=== PATIENT | female | born 1945 | race Caucasian/White ===

== ENCOUNTER 2021-04-05 07:33 | Outpatient (CLI) | payer MEDICARE, SELFPAY ==
--- NOTE | ~2021-04-05 | MM_ITS ---
EXAMINATION: MM screening [facility] BI w [facility] HISTORY: Screening mammogram TECHNIQUE: Craniocaudal and mediolateral oblique 3-D tomosynthesis images were obtained and synthetic 2-D images were generated. CAD analysis was submitted and interpreted. COMPARISON: 08/05/2019, 05/28/2018, 02/20/2017 BREAST PARENCHYMAL COMPOSITION: There are scattered areas of fibroglandular density. FINDINGS: Scattered benign-appearing calcifications are present. There is no evidence of suspicious m ass, calcification, or architectural distortion to suggest malignancy in either breast. There has bee n no suspicious interval change. IMPRESSION: 1. No mammographic evidence of malignancy. 2. Recommend routine screening mammography in one year. BI-RADS Category 2: Benign finding(s). Reviewed, dictated and finalized at location A.
--- NOTE | ~2021-04-05 | DEXA_ITS ---
Bone Density Report Name: Maddi Waller Age: 75 Sex: Female Ethnicity: White Date of : 1945 Indication: postmenopausal; height loss; Referring Provider: Carmelina Bertrand Study: Bone densitometry was performed. Exam Date: April 05, 2021 Accession number: [id number] Bone Density: Region BMD T-score Z-score Classification AP Spine (L1, L2) 0.996 0.2 2.4 Normal Femoral Neck (Left) 0.667 -1.6 0.5 Osteopenia Total Hip (Left) 0.760 -1.5 0.3 Osteopenia Total Hip Bilateral Avg 0.767 -1.5 0.4 Osteopenia Femoral Neck (Right) 0.666 -1.6 0.5 Osteopenia Total Hip (Right) 0.774 -1.4 0.4 Osteopenia World Health Organization criteria for BMD impression classify patients as: Normal (T-score at or above -1.0), Osteopenia (T-score between -1.0 and -2.5), or Osteoporosis (T-score at or below -2.5). 10-year Fracture Risk(1): Major Osteoporotic Fracture 11% Hip Fracture 2.4% Reported Risk Factors: [place] (), Neck BMD=0.666, BMI=31.5 (1) FRAX(R) Version 3.08. Fracture probability calculated for an untreated patient. Fracture probability may be lower if the patient has received treatment. Previous Exams: Region Exam Age BMD T-score BMD Change BMD Change Date g/cm2 vs Baseline vs Previous AP Spine(L1, L2) 04/05/2021 75 0.996 0.2 0.005(0.5%)# 0.005(0.5%)# 12/01/2011 66 0.991 0.1 Total Hip(Left) 04/05/2021 75 0.760 -1.5 -0.095(-11.1%) -0.095(-11.1%) 12/01/2011 66 0.856 -0.7 Total Hip(Right) 04/05/2021 75 0.774 -1.4 -0.058(-7.0%)# -0.058(-7.0%)# 12/01/2011 66 0.832 -0.9 *Denotes significance at 95% confidence level, LSC for AP Spine = 0.022 g/cm2, LSC for Total Hip = 0.027 g/cm2 Clinical Information Provided by Patient: Has used the following medications: Vitamin D, Calcium Patient maximum height was 70 Menopause Age: 50 Onset of menses at age 12 Number of children 2 Impression: The patient has low bone mass, based on the Left Femoral Neck T-score. The patient has an estimated ten-year risk of hip fracture of 2.4% and an estimated ten-year risk of major fracture of 11%, based on the WHO FRAX algorithm. No significant bone loss was observed. Discussion: BONE DENSITY IS LOW AT ONE OR MORE SKELETAL SITES. This patient's lowest T-score is low at one or more skeletal sites. It meets the World Health Organization's (WHO) criteria for ?low bone mass? (T-score between -1.0 and -2.5). The patient's 10-year risk of fra
== END 2021-04-05 07:34 | disposition home or self-care (01) ==
PROVIDERS: PCP Family Medicine; Visit Provider Family Medicine
DX: Z12.31 Encounter for screening mammogram for malignant neoplasm of breast (principal); Z78.0 Asymptomatic menopausal state; M85.852 Other specified disorders of bone density and structure, left thigh; M85.851 Other specified disorders of bone density and structure, right thigh
CPT/HCPCS: 77063; 77067; 77080

== ENCOUNTER 2022-06-07 10:37 | Outpatient (CLI) | payer MEDICARE, SELFPAY ==
[2022-06-07 18:28] LABS: Basophils Absolute Auto 0.1 K/mm3 (0.0-0.1); Basophils Percent Auto 0.9 % (0.2-1.2); Eosinophils Absolute Auto 0.2 K/mm3 (0-0.3); Eosinophils Percent Auto 2.7 % (0-4.4); Hematocrit 46.1 % (37.0-47.0); Hemoglobin 14.6 g/dL (12.0-15.0); Immature Granulocyte Absolute 0.01 K/mm3 (0.00-0.031); Immature Granulocyte Percent A 0.2 % (0-0.5); Lymphocytes Absolute Auto 2.02 K/mm3 (0.9-3.2); Lymphocytes Percent Auto 36.7 % (18.3-44.2); Mean Corpuscular HGB Conc 31.7 g/dl (32-36); Mean Corpuscular Hemoglobin 29.5 pg (26-34); Mean Corpuscular Volume 93.1 fl (80-100); Monocytes Absolute Auto 0.5 K/mm3 (0.1-0.6); Monocytes Percent Auto 8.7 % (2.6-8.5); Neutrophils Absolute Auto 2.8 K/mm3 (1.3-6.7); Neutrophils Percent Auto 50.8 % (45.5-73.1); Platelet Count Result 277 k/mm3 (150-375); Red Blood Count 4.95 M/mm3 (4.2-5.4); White Blood Count 5.5 K/mm3 (4.5-10.0)
[2022-06-07 18:37] LABS: Alanine Aminotransferase 19 U/L (6-35); Albumin Level 4.5 g/dL (3.5-5.1); Alkaline Phosphatase 95 U/L (38-126); Anion Gap 10 mmol/L (8-16); Aspartate Amino Transferase 41 U/L (14-36); Bilirubin,Total 0.6 mg/dL (0.2-1.3); Blood Urea Nitrogen 17 mg/dL (7-17); Carbon Dioxide 30 mmol/L (22-30); Chloride 100 mmol/L (98-107); Cholesterol 260 mg/dL (0-200); Estimated Glomerular Filt Rate > 60; Glucose 98 mg/dL (65-110); HDL Direct 60 mg/dL; Potassium 4.5 mmol/L (3.4-5.0); Sodium 140 mmol/L (137-145); Triglycerides 111 mg/dL (<150)
[2022-06-07 18:48] LABS: LDL Cholesterol Direct 158 mg/dL
[2022-06-07 18:50] LABS: Vitamin D 25 Hydroxy 80.5 ng/mL
== END 2022-06-07 10:38 | disposition home or self-care (01) ==
LOC: ANHGOSHLAB 10:42
PROVIDERS: PCP Family Medicine; Visit Provider Family Medicine
DX: E78.5 Hyperlipidemia, unspecified (principal); E55.9 Vitamin D deficiency, unspecified; E53.8 Deficiency of other specified B group vitamins; E03.9 Hypothyroidism, unspecified; Z79.899 Other long term (current) drug therapy
CPT/HCPCS: 36415; 80053; 80061; 82306; 82607; 85025

== ENCOUNTER 2022-10-12 11:14 | Outpatient (CLI) | payer MEDICARE, SELFPAY ==
[2022-10-12 19:03] LABS: Alanine Aminotransferase 25 U/L (6-35); Albumin Level 4.5 g/dL (3.5-5.1); Alkaline Phosphatase 73 U/L (38-126); Anion Gap 5 mmol/L (8-16); Aspartate Amino Transferase 39 U/L (14-36); Bilirubin,Total 0.4 mg/dL (0.2-1.3); Blood Urea Nitrogen 15 mg/dL (7-17); Calcium 8.6 mg/dL (8.4-10.2); Carbon Dioxide 31 mmol/L (22-30); Chloride 101 mmol/L (98-107); Cholesterol 162 mg/dL (0-200); Estimated Glomerular Filt Rate > 60; Glucose 100 mg/dL (65-110); HDL Direct 66 mg/dL; Potassium 4.3 mmol/L (3.4-5.0); Sodium 137 mmol/L (137-145); Triglycerides 78 mg/dL (<150)
[2022-10-12 19:13] LABS: LDL Cholesterol Direct 62 mg/dL
== END 2022-10-12 11:15 | disposition home or self-care (01) ==
LOC: ANHGOSHLAB 11:18
PROVIDERS: PCP Family Medicine; Visit Provider Family Medicine
DX: E78.5 Hyperlipidemia, unspecified (principal); I10 Essential (primary) hypertension; Z79.899 Other long term (current) drug therapy
CPT/HCPCS: 36415; 80053; 80061

== ENCOUNTER → 2023-02-19 10:14 | Outpatient (CLI) | payer MEDICARE, SELFPAY ==
--- NOTE | ~2023-02-19 | XR_ITS ---
Left wrist Technique: PA, oblique, lateral, and ulnar deviation views were obtained. Clinical History: Pain Findings: No acute fracture or dislocation is seen. Osseous alignment is anatomic. Joint spaces are p reserved. Soft tissues are unremarkable. Impression: Unremarkable left wrist radiographs. Reviewed, dictated and finalized at location . Impression: Unremarkable left wrist radiographs.
--- NOTE | ~2023-02-19 | XR_ITS ---
Right Shoulder Technique: AP and axillary views were obtained. Clinical History: Pain Findings: No fracture or dislocation is seen. Osseous alignment is anatomic. The glenohumeral and acr omioclavicular joint spaces are preserved. Soft tissues are unremarkable. Impression: Unremarkable right shoulder radiographs. Reviewed, dictated and finalized at [facility]. Impression: Unremarkable right shoulder radiographs.
== END ==
PROVIDERS: PCP Family Medicine; Visit Provider Family Medicine
DX: M25.532 Pain in left wrist (principal); M25.511 Pain in right shoulder
CPT/HCPCS: 73030; 73110

== ENCOUNTER 2023-04-05 10:08 | Emergency (ER) | payer MEDICARE, SELFPAY ==
[2023-04-05] VITALS (17 sets, daily range): BP systolic 119–189; BP diastolic 68–125; PULSE 60–87; RESP 12–30; TEMP 36.6; O2SAT 74–100
--- NOTE | ~2023-04-05 | CT_ITS ---
EXAMINATION: CT brain wo con DATE: 04/05/2023 12:12 INDICATION: Headache. Lightheadedness. TECHNIQUE: Computed tomography (CT) of the head was performed without intravenous contrast. The mA wa s adjusted according to patient size. Iterative reconstruction technique was employed. The dose-lengt h product was 605.33 mGy-cm. COMPARISON: None FINDINGS: There is no intracranial hemorrhage, acute infarction, or abnormal intracranial mass lesion . There are scattered areas of low attenuation in the cerebral white matter, which is within normal l imits for the patient's age. The ventricles are normal in size. There are likely changes of ocular le ns replacement surgeries. There is mild mucosal thickening in the ethmoid sinuses. The mastoid air ce lls are normal. IMPRESSION: 1. Normal aging brain. Reviewed, dictated and finalized at location A. IMPRESSION: 1. Normal aging brain.
[2023-04-05 10:38] LABS: Basophils Percent Auto 0.5 % (0.2-1.2); Eosinophils Absolute Auto 0.1 K/mm3 (0-0.3); Eosinophils Percent Auto 1.9 % (0-4.4); Hematocrit 42.9 % (37.0-47.0); Hemoglobin 13.9 g/dL (12.0-15.0); Immature Granulocyte Absolute 0.02 K/mm3 (0.00-0.031); Immature Granulocyte Percent A 0.3 % (0-0.5); Lymphocytes Percent Auto 31.3 % (18.3-44.2); Mean Corpuscular HGB Conc 32.4 g/dl (32-36); Mean Corpuscular Hemoglobin 29.8 pg (26-34); Mean Corpuscular Volume 91.9 fl (80-100); Mean Platelet Volume 10.5 fl (7.4-10.4); Monocytes Absolute Auto 0.5 K/mm3 (0.1-0.6); Monocytes Percent Auto 8.2 % (2.6-8.5); Neutrophils Absolute Auto 3.3 K/mm3 (1.3-6.7); Neutrophils Percent Auto 57.8 % (45.5-73.1); Platelet Count Result 213 k/mm3 (150-375); Red Blood Count 4.67 M/mm3 (4.2-5.4); White Blood Count 5.8 K/mm3 (4.5-10.0)
[2023-04-05 10:51] LABS: Alanine Aminotransferase 23 U/L (6-35); Albumin Level 4.2 g/dL (3.5-5.1); Alkaline Phosphatase 67 U/L (38-126); Anion Gap 5 mmol/L (8-16); Aspartate Amino Transferase 33 U/L (14-36); Bilirubin,Total 0.7 mg/dL (0.2-1.3); Blood Urea Nitrogen 22 mg/dL (7-17); Calcium 8.4 mg/dL (8.4-10.2); Carbon Dioxide 28 mmol/L (22-30); Chloride 105 mmol/L (98-107); Estimated CRCL calculation 71 ml/min; Estimated Glomerular Filt Rate > 60; Glucose 99 mg/dL (65-110); Potassium 4.4 mmol/L (3.4-5.0); Sodium 138 mmol/L (137-145)
--- NOTE | 2023-04-05 11:59 | ECG_ITS ---
Measurements Intervals [place] Rate: 71 P: 72 VA: 166 QRS: -7 QRSD: 79 T: 10 QT: 364 QTc: 397 Interpretive Statements SINUS RHYTHM LOW QRS VOLTAGE IN PRECORDIAL LEADS [QRS DEFLECTION < 1.0 mV IN CHEST LEADS] NO PREVIOUS ECG AVAILABLE FOR COMPARISON Electronically Signed On 04-05-2023 14:04:43 CDT by Saul Kaur M.D.
--- NOTE | 2023-04-05 12:58 | ED.DIZZY ---
HPI - Dizziness General Chief Complaint: Dizziness Stated Complaint: dizzy Time Seen by Provider: 04/05/23 10:21 Source: patient Mode of arrival: EMS Limitations: no limitations History of Present Illness HPI Narrative: Patient is a 77-year-old female who presents to the ED via EMS with report of lightheadedness. Patient reports she woke up this morning with lightheadedness anytime she stood upright. She felt like she was going to pass out, felt very unsteady on her feet. Denies ever feeling like the room was spinning. Symptoms were better with sitting down. She did not fall or lose consciousness ever. Patient states she had similar episodes of lightheadedness a couple of weeks ago, but the symptoms did not last as long as it did today. She has been feeling her normal self the last couple of days. She has been eating and drinking normally. She did experience a slight headache this morning, which was resolved with Aleve. Denies any vision changes, focal weakness, numbness, chest pain, difficulty breathing, nausea, vomiting, slurred speech, confusion, dysarthria, ear pain or ringing. Related Data Home Medications Medication Instructions Recorded Confirmed thyroid (pork) 60 mg tablet 60 mg PO DAILY 12/27/20 02/19/23 cholecalciferol (vitamin D3) 50 50 mcg PO DAILY 04/05/21 02/19/23 mcg (2,000 unit) capsule ascorbic acid (vitamin C) 1,000 mg 1 g PO DAILY 06/07/22 02/19/23 capsule biotin 10,000 mcg capsule 10,000 mcg PO DAILY 06/07/22 02/19/23 kcglypn-phtvifrjf-slgb tablet 1 tablet PO DAILY 06/07/22 02/19/23 glucosamine-chondroitin 1,500 mg ml PO 06/07/22 02/19/23 -1,200 mg/30 mL oral liquid omega-3 acid ethyl esters 1 gram 1 cap PO DAILY 06/07/22 02/19/23 capsule vitamins A,C,G-azge-hogefs 4,296 1 cap PO BID 06/07/22 02/19/23 mcg-226 mg-90 mg capsule (PreserVision AREDS) Allergies Allergy/AdvReac Type Severity Reaction Status Date / Time No Known Allergies Allergy Verified 04/05/23 10:21 Review of Systems Review of Systems: CONSTITUTIONAL: Denies fever, chills, or sweats. EYES: Denies visual changes. CARDIOVASCULAR: Denies chest pain, palpitations, or edema. RESPIRATORY: Denies cough or dyspnea. GASTROINTESTINAL: Denies abdominal pain, nausea, vomiting. MUSCULOSKELETAL: Denies back pain, joint pain, or myalgia. NEUROLOGIC: See HPI. All systems reviewed & are unremarkable except as noted in HPI and below PMFSH Past Medical History Medical History Dyslipidemia Hypothyroidism (acquired) Osteopenia Surgical History Surgical History History of cataract surgery (~02/2021) b/l Family History Family History Other Diabetes mellitus Social History Social History Smoking status: Former smoker Second hand tobacco smoke exposure: No Smoking end date: 10/22/03 Alcohol intake: current Substance use: never Substance use type: does not use Lack of Transportation: No Lack of Food: Never True Current Housing: I Have Housing Concerned About Future Housing: No Difficulty Paying Gas/Electric Bills: No Difficulty Paying for Meds: No Currently Unemployed: No Education: High School Diploma/GED Difficulty w/ Childcare or Family Care: No Living arrangements: alone Occupation/Education: retired Gender identity (if verbalized by the patient): Female Exam Narrative: GENERAL: Well appearing, well-nourished, non-toxic, in no acute distress. HEAD: Normocephalic, atraumatic. EYES: PERRL/EOMI, conjunctivae clear bilaterally. Very mild fatigable nystagmus when looking to the left. EARS:TMS clear, with good light reflex. No erythema or bulging. No cerumen impaction. THROAT: Pharynx clear, no exudate. MMs slightly dry. NECK: Supple. No
[2023-04-05 13:14] LABS: Troponin I < 0.012 ng/mL (0.000-0.034)
[2023-04-05] MEDS: MECLIZINE HCL 25 MG TABLET PO (13:14)
[2023-04-05] MEDS: SODIUM CHLORIDE 0.9% IV 1,000 ML 999 ML IV CONT (13:15)
[2023-04-05 13:40] LABS: Appearance Urine Cloudy (Clear); Bacteria Urine 3+ /hpf; Bilirubin Urine 1+ (Negative); Blood Urine Negative (Negative); Color Urine Dark Yellow (Yellow); Glucose Urine UA Negative (Negative); Ketones Urine Trace mg/dL (Negative); Leukocyte Esterase Ur 1+ LEU/UL (Negative); Nitrate Urine Negative (Negative); Protein Urine 1+ mg/dL (Negative); Specific Grav Ur 1.034 (1.001-1.035); Squamous Epithelial Cell Urine Moderate /hpf (Few)
[2023-04-05 13:46] LABS: Add Urine Microscopic? YES
[2023-04-05] MEDS: CEPHALEXIN 500 MG CAPSULE PO (16:34)
== END 2023-04-05 16:36 | disposition home or self-care (01) ==
PROVIDERS: Emergency Provider Physician Assistant; PCP Family Medicine
DX: N30.01 Acute cystitis with hematuria (principal); R42 Dizziness and giddiness; E78.5 Hyperlipidemia, unspecified; E03.9 Hypothyroidism, unspecified; M85.80 Other specified disorders of bone density and structure, unspecified site; Z98.42 Cataract extraction status, left eye; Z98.41 Cataract extraction status, right eye; Z87.891 Personal history of nicotine dependence
CPT/HCPCS: 36415; 70450; 80053; 81001; 81025; 84484; 85025; 87086; 87088; 93005; 96360; 96361; 99284; A9270; J7030

== ENCOUNTER 2023-05-16 10:00 | Outpatient (RCR) | payer MEDICARE, SELFPAY ==
--- NOTE | 2023-04-18 13:00 | PTOPEVAL1 ---
Assessment and note entered by Jeanette Alcaraz, PT Evaluation Information Assessment Status Evaluation Diagnosis dizziness Onset 04-05-23 Subjective Information went to ER 04-05-23: light headed and felt like going to pass out when woke up in AM; took her BP at home 260/105- called ambulance to ER; had head CT- negative, mild sinus thickening; given new med for HTN, had not taken any before. have meclazine; is taking PRN now, but it does make her tired; is taking her BP at home, 2x/day: this AM was 125/80 to 105/75; Have not had any falls; symptoms now: wobbly/off balance sit to stand; going to fall if don't hold tight- on stairs hold with both hands, going up stairs is not as bad; ( have history of almost panic on elevators and always careful and afraid of falling on stairs); when walking- afraid going to lose balance and fall, then break something; is not driving due to symptoms; over the weekend was OK, went to family event with lots of people and noise, had to leave, felt like going to fall; is more off balance than dizzy vison: varies at times; have macular degeneration under dr care; L eye is more involved--getting injections; also have dry eyes- use drops; sometimes TV is blurry; after taking the meclazine, eyes do not hurt as much; prior activity: live alone,active- walk for fitness 2 miles for fitness 2-3/wk; golfs. does not use assistive device, but has a cane and has used few times lately; is not driving due to s/s Reported Pain Level Pain Score 0: Self Report Assessment PT Clinical Summary Maddi has the diagnosis of dizziness. She went to the ER with lightheadedness like going to pass out. Head CT was negative and she was diagnosed with HTN and started on meds. Due to her symptoms , she is using the cane PRN, decreased activity level, not walking for fitness and is not driving. Dizziness Handicap Index score of 56/100. She has not had any falls, but unsteady reports. And states she has a fear of falling. Her symptoms increase w
--- NOTE | 2023-05-16 10:57 | PTOPDC ---
Assessment and note entered by Jeanette Alcaraz, PT Evaluation Information Assessment Status Discharge Diagnosis dizziness Onset 04-05-23 Subjective Information Maddi reports: much better, still have a little motion feeling with driving, working in kitchen; not taken any dizzy meds; have not had any falls; most of the time is confident with walking, doing well on stairs; no issues with driving; feel like she is 90% better, still have some problems with standing and turning in kitchen or reaching down into cabinets; Reported Pain Level Pain Score 0: Self Report Assessment PT Clinical Summary Maddi has received 7 PT sessions. Compared to the initial evaluation: she has improved in all areas: R and L LE strength, TUG and Bermudez balance scores; improved balance with 360' turns, ability on stairs--more confident with her mobility, returned to driving and has not had any falls. Education completed for HEP and safety with mobility. She expressed concern about continuing to have dizzy spells ; they appear to be inconsistent and one occurred during today's session with rolling from her L side to her R side for leg exercises- cleared within 5 seconds. She reports no problems at home with lying in bed and turning over. Education provided for safety-- hold position, keep eyes open and take deep breaths--not to hold her breath. The goals were achieved, except Bermudez balance score and time with single leg standing on R and L. Discharge PT services; she is to continue with her HEP Plan of Care PT Services Indicated No
== END 2023-05-16 13:49 | disposition home or self-care (01) ==
LOC: ANHPT 10:00
PROVIDERS: PCP Family Medicine; Visit Provider Family Medicine
DX: R42 Dizziness and giddiness (principal)
CPT/HCPCS: 97110; 97112; 97162; 97530

== ENCOUNTER 2023-06-13 10:45 | Outpatient (CLI) | payer MEDICARE, SELFPAY ==
[2023-06-13 18:57] LABS: Alanine Aminotransferase 25 U/L (6-35); Albumin Level 4.5 g/dL (3.5-5.1); Alkaline Phosphatase 69 U/L (38-126); Anion Gap 12 mmol/L (8-16); Aspartate Amino Transferase 43 U/L (14-36); Bilirubin,Total 0.5 mg/dL (0.2-1.3); Blood Urea Nitrogen 17 mg/dL (7-17); Carbon Dioxide 32 mmol/L (22-30); Chloride 96 mmol/L (98-107); Cholesterol 162 mg/dL (0-200); Estimated Glomerular Filt Rate > 60; Glucose 100 mg/dL (65-110); HDL Direct 58 mg/dL; Sodium 140 mmol/L (137-145); Triglycerides 71 mg/dL (<150)
[2023-06-13 19:07] LABS: Basophils Percent Auto 0.5 % (0.2-1.2); Eosinophils Absolute Auto 0.1 K/mm3 (0-0.3); Eosinophils Percent Auto 1.4 % (0-4.4); Hematocrit 47.3 % (37.0-47.0); Hemoglobin 14.8 g/dL (12.0-15.0); Immature Granulocyte Absolute 0.03 K/mm3 (0.00-0.031); Immature Granulocyte Percent A 0.5 % (0-0.5); Lymphocytes Absolute Auto 2.28 K/mm3 (0.9-3.2); Lymphocytes Percent Auto 34.8 % (18.3-44.2); Mean Corpuscular HGB Conc 31.3 g/dl (32-36); Mean Corpuscular Hemoglobin 29.5 pg (26-34); Mean Corpuscular Volume 94.4 fl (80-100); Mean Platelet Volume 10.8 fl (7.4-10.4); Monocytes Absolute Auto 0.5 K/mm3 (0.1-0.6); Monocytes Percent Auto 8.1 % (2.6-8.5); Neutrophils Absolute Auto 3.6 K/mm3 (1.3-6.7); Neutrophils Percent Auto 54.7 % (45.5-73.1); Platelet Count Result 238 k/mm3 (150-375); Red Blood Count 5.01 M/mm3 (4.2-5.4); Red Cell Distribution Width 14.3 % (11.5-14.5); White Blood Count 6.6 K/mm3 (4.5-10.0)
[2023-06-13 19:08] LABS: LDL Cholesterol Direct 79 mg/dL
[2023-06-13 20:06] LABS: Vitamin D 25 Hydroxy 62.8 ng/mL
[2023-06-13 20:20] LABS: Thyroid Stimulating Hormone Reflex 0.403 uIU/mL (0.465-4.68)
[2023-06-13 20:46] LABS: Free T4 Free Thyroxine Reflex 1.14 ng/dL (0.78-2.19)
[2023-06-13 21:25] LABS: Total Triiodothyronine (T3) 1.95 NG/ML (0.97-1.69)
== END 2023-06-13 10:46 | disposition home or self-care (01) ==
PROVIDERS: PCP Family Medicine; Visit Provider Family Medicine
DX: R42 Dizziness and giddiness (principal); E53.8 Deficiency of other specified B group vitamins; I10 Essential (primary) hypertension; E78.5 Hyperlipidemia, unspecified; E55.9 Vitamin D deficiency, unspecified
CPT/HCPCS: 36415; 80053; 80061; 82306; 82607; 84439; 84443; 84480; 85025

== ENCOUNTER 2023-12-12 10:48 | Outpatient (CLI) | payer MEDICARE, SELFPAY ==
[2023-12-12 14:28] LABS: Alanine Aminotransferase 24 U/L (6-35); Albumin Level 4.4 g/dL (3.5-5.1); Alkaline Phosphatase 73 U/L (38-126); Anion Gap 3 mmol/L (8-16); Aspartate Amino Transferase 64 U/L (14-36); Bilirubin,Total 0.6 mg/dL (0.2-1.3); Blood Urea Nitrogen 23 mg/dL (7-17); Calcium 9.3 mg/dL (8.4-10.2); Carbon Dioxide 31 mmol/L (22-30); Chloride 105 mmol/L (98-107); Estimated Glomerular Filt Rate > 60; Glucose 95 mg/dL (65-110); Potassium 4.8 mmol/L (3.4-5.0); Sodium 139 mmol/L (137-145)
== END 2023-12-12 10:49 | disposition home or self-care (01) ==
LOC: ANHGOSHLAB 10:49
PROVIDERS: PCP Family Medicine; Visit Provider Family Medicine
DX: E78.5 Hyperlipidemia, unspecified (principal); I10 Essential (primary) hypertension
CPT/HCPCS: 36415; 80053

== ENCOUNTER → 2023-12-12 10:56 | Outpatient (CLI) | payer MEDICARE, SELFPAY ==
--- NOTE | ~2023-12-12 | XR_ITS ---
EXAMINATION:XR cervical spine 4-5V DATE: 12/12/2023 11:21 INDICATION: Neck pain TECHNIQUE: AP, lateral in neutral, flexion, extension, and odontoid views of the cervical spine are p rovided. COMPARISON: None FINDINGS: Alignment is normal. There is no hypermobility with flexion or extension. The odontoid proc ess is intact. No fracture is identified. The vertebral body heights are maintained. There is moderat e loss of intervertebral disc space height at C6-7 and C7-T1. Small degenerative osteophytes project from the anterior endplates of multiple vertebral bodies. There is multilevel mild to moderate facet and uncovertebral joint osteoarthritis. Prevertebral soft tissues are normal. IMPRESSION: 1. Moderate cervical spondylosis without acute findings. Reviewed, dictated and finalized at location B. [employer]
== END ==
PROVIDERS: PCP Family Medicine; Visit Provider Family Medicine
DX: M47.892 Other spondylosis, cervical region (principal)
CPT/HCPCS: 72050

== ENCOUNTER 2024-05-29 08:36 | Outpatient (CLI) | payer MEDICARE, SELFPAY ==
--- NOTE | ~2024-05-29 | DEXA_ITS ---
Bone Density Report Name: YASMEEN DAVE Age: 78 Sex: Female Ethnicity: White Date of : 1945 Indication: postmenopausal; screening for osteoporosis; height loss; Referring Provider: EMMA AMADOR Study: Bone densitometry was performed. Exam Date: May 29, 2024 Accession number: [id number] Bone Density: Region BMD T-score Z-score Classification AP Spine(L1-L4) 1.066 0.2 2.8 Normal Femoral Neck (Left) 0.670 -1.6 0.6 Osteopenia Total Hip (Left) 0.793 -1.2 0.8 Osteopenia Femoral Neck (Right) 0.636 -1.9 0.3 Osteopenia Total Hip (Right) 0.830 -0.9 1.1 Normal Total Hip Mean 0.812 -1.1 1.0 Osteopenia World Health Organization criteria for BMD impression classify patients as: Normal (T-score at or above -1.0), Osteopenia (T-score between -1.0 and -2.5), or Osteoporosis (T-score at or below -2.5). 10-year Fracture Risk(1): Major Osteoporotic Fracture 14% Hip Fracture 3.8% Reported Risk Factors: [place] (), Neck BMD=0.636, BMI=30.7 (1) FRAX(R) Version 3.08. Fracture probability calculated for an untreated patient. Fracture probability may be lower if the patient has received treatment. Clinical Information Provided by Patient: Has used the following medications: Vitamin D, Calcium Patient maximum height was 70 Menopause Age: 50 No regular weight bearing exercise Drinks caffeinated beverages Onset of menses at age 12 Number of children 2 Impression: The patient has low bone mass, based on the Right Femoral Neck T-score. The patient has an estimated ten-year risk of hip fracture of 3.8% and an estimated ten-year risk of major fracture of 14%, based on the WHO FRAX algorithm. Discussion: BONE DENSITY IS LOW AT ONE OR MORE SKELETAL SITES. THE PATIENT'S BMD AND CLINICAL RISK FACTORS CONTRIBUTE TO THIS PATIENT'S INCREASED RISK OF FRACTURE. This patient's lowest T-score is low at one or more skeletal sites. It meets the World Health Organization's (WHO) criteria for ?low bone mass? (T-score between -1.0 and -2.5). The patient's 10-year risk of hip fracture as calculated by FRAX exceeds the threshold where pharmacological therapy is recommended by the National Osteoporosis Foundation (NOF). However, all treatment decisions require clinical judgment and consideration of individual patient factors, including patient preferences, comorbidities, previous drug use, risk factors not captured in the FRAX model (e.g., frailty, falls, vitamin D deficiency, increased bone turnover, interval significant decline in bone density) and possible under or overestimation of fracture risk by FRAX. The patient should follow a healthful lifestyle (good nutrition with adequate calcium and vitamin D, and appropriate weight-bearing exercise). Follow-Up: Consider a repeat BMD and Vertebr
--- NOTE | ~2024-05-29 | MM_ITS ---
EXAMINATION: MM screening senthil BI w everett HISTORY: Screening TECHNIQUE: Craniocaudal and mediolateral oblique 3-D tomosynthesis images were obtained and synthetic 2-D images were generated. CAD analysis was submitted and interpreted. COMPARISON: Comparison to multiple prior studies sequentially, with oldest reviewed study dated 12/2014. BREAST PARENCHYMAL COMPOSITION: Not dense: There are scattered areas of fibroglandular density. FINDINGS: There is no evidence of suspicious mass, calcification, or architectural distortion to sugg est malignancy in either breast. There has been no suspicious interval change. IMPRESSION: 1. No mammographic evidence of malignancy. 2. Recommend routine screening mammography in one year. BI-RADS Category 1: Negative Reviewed, dictated and finalized at location B.
== END 2024-05-29 08:37 | disposition home or self-care (01) ==
LOC: ANHIMG 08:38
PROVIDERS: PCP Family Medicine; Visit Provider Family Medicine
DX: Z12.31 Encounter for screening mammogram for malignant neoplasm of breast (principal); Z78.0 Asymptomatic menopausal state; M85.852 Other specified disorders of bone density and structure, left thigh; M85.851 Other specified disorders of bone density and structure, right thigh
CPT/HCPCS: 77063; 77067; 77080

== ENCOUNTER 2024-06-16 11:22 | Outpatient (CLI) | payer MEDICARE, SELFPAY ==
[2024-06-16 14:10] LABS: Basophils Absolute Auto 0.1 K/mm3 (0.0-0.1); Basophils Percent Auto 0.8 % (0.2-1.2); Eosinophils Absolute Auto 0.2 K/mm3 (0-0.3); Eosinophils Percent Auto 2.2 % (0-4.4); Hematocrit 45.8 % (37.0-47.0); Hemoglobin 14.6 g/dL (12.0-15.0); Immature Granulocyte Absolute 0.02 K/mm3 (0.00-0.031); Immature Granulocyte Percent A 0.3 % (0-0.5); Lymphocytes Absolute Auto 2.53 K/mm3 (0.9-3.2); Lymphocytes Percent Auto 35.5 % (18.3-44.2); Mean Corpuscular HGB Conc 31.9 g/dl (32-36); Mean Corpuscular Hemoglobin 29.7 pg (26-34); Mean Corpuscular Volume 93.3 fl (80-100); Mean Platelet Volume 10.8 fl (7.4-10.4); Monocytes Absolute Auto 0.6 K/mm3 (0.1-0.6); Monocytes Percent Auto 8.7 % (2.6-8.5); Neutrophils Absolute Auto 3.7 K/mm3 (1.3-6.7); Neutrophils Percent Auto 52.5 % (45.5-73.1); Platelet Count Result 244 k/mm3 (150-375); Red Blood Count 4.91 M/mm3 (4.2-5.4); Red Cell Distribution Width 15.4 % (11.5-14.5); White Blood Count 7.1 K/mm3 (4.5-10.0)
[2024-06-16 14:50] LABS: Alanine Aminotransferase 20 U/L (6-35); Albumin Level 4.4 g/dL (3.5-5.1); Alkaline Phosphatase 68 U/L (38-126); Anion Gap 11 mmol/L (4-12); Aspartate Amino Transferase 60 U/L (14-36); Bilirubin,Total 0.7 mg/dL (0.2-1.3); Blood Urea Nitrogen 19 mg/dL (7-17); Calcium 8.7 mg/dL (8.4-10.2); Carbon Dioxide 28 mmol/L (22-30); Chloride 102 mmol/L (98-107); Cholesterol 145 mg/dL (0-200); Estimated Glomerular Filt Rate > 60; Glucose 96 mg/dL (65-110); HDL Direct 63 mg/dL; Potassium 4.4 mmol/L (3.4-5.0); Sodium 141 mmol/L (137-145); Triglycerides 63 mg/dL (<150)
[2024-06-16 15:01] LABS: LDL Cholesterol Direct 60 mg/dL
[2024-06-16 16:06] LABS: Vitamin D 25 Hydroxy 57.4 ng/mL
== END 2024-06-16 11:23 | disposition home or self-care (01) ==
LOC: ANHGOSHLAB 11:24
PROVIDERS: PCP Family Medicine; Visit Provider Family Medicine
DX: I10 Essential (primary) hypertension (principal); E53.8 Deficiency of other specified B group vitamins; H35.30 Unspecified macular degeneration; E78.5 Hyperlipidemia, unspecified; E55.9 Vitamin D deficiency, unspecified
CPT/HCPCS: 36415; 80053; 80061; 82306; 82607; 85025

== ENCOUNTER 2024-07-10 06:14 | Day surgery (SDC) | payer MEDICARE, SELFPAY ==
[2024-06-18 14:24] VITALS: BMI 34.4
[2024-06-20 11:04] VITALS: BMI 31.1
--- NOTE | 2024-07-09 13:12 | WPDANESEPPF ---
Anes - Initial Pre Proc Eval Procedure: Operation Date: 07/10/24 08:00 Proposed Procedures p Diagnostic Colonoscopy - David Castro MD Date/Time: 07/09/24 13:12 Surgeon: David Castro MD Pre Op Diagnosis: Family History of Colon Cancer Patient Data Age: 78 Gender: F Height: 1.73 m Weight: 92.8 kg Allergies Allergy/AdvReac Type Severity Reaction Status Date / Time No Known Allergies Allergy Verified 07/10/24 06:37 Home Medications Medication Instructions Recorded Confirmed Type thyroid (pork) 60 mg tablet 60 mg PO DAILY 12/27/20 07/10/24 History cholecalciferol (vitamin D3) 50 50 mcg PO DAILY 04/05/21 07/10/24 History mcg (2,000 unit) capsule ascorbic acid (vitamin C) 1,000 mg 1 g PO DAILY 06/07/22 07/10/24 History capsule biotin 10,000 mcg capsule 10,000 mcg PO DAILY 06/07/22 07/10/24 History uurljel-vxgfndyzm-urzl tablet 1 tablet PO DAILY 06/07/22 07/10/24 History glucosamine-chondroitin 1,500 mg 30 ml PO DAILY 06/07/22 07/10/24 History -1,200 mg/30 mL oral liquid omega-3 acid ethyl esters 1 gram 1 cap PO DAILY 06/07/22 07/10/24 History capsule vitamins A,C,B-mtho-orffby 4,296 1 cap PO BID 06/07/22 07/10/24 History mcg-226 mg-90 mg capsule (PreserVision AREDS) amlodipine 5 mg tablet 5 mg PO DAILY #90 tabs 06/12/24 07/10/24 Rx rosuvastatin 10 mg tablet 10 mg PO QHS #90 tabs 06/12/24 07/10/24 Rx Patient hx anesthesia problems: none Family hx anesthesia problems: none Results Review: All pre-operative results and documents have been reviewed as part of the pre-operative evaluation. [facility] Past Medical History Medical History Chronic neck pain Dyslipidemia Essential (primary) hypertension Family history of colon cancer Hypothyroidism (acquired) Macular degeneration of both eyes Osteopenia Surgical History Surgical History History of cataract surgery (~02/2021) b/l Family History Family History Other Diabetes mellitus Social History Social History Smoking status: Former smoker Tobacco type: cigarettes Second hand tobacco smoke exposure: No Smoking end date: 10/22/03 Alcohol intake: current Alcohol use details: occasional Substance use: never Substance use type: does not use Lack of Transportation: No Lack of Food: Never True Current Housing: I Have Housing Concerned About Future Housing: No Difficulty Paying Gas/Electric Bills: No Difficulty Paying for Meds: No Currently Unemployed: No Education: High School Diploma/GED Difficulty w/ Childcare or Family Care: No Living arrangements: alone Occupation/Education: retired Gender identity (if verbalized by the patient): Female Spiritual care concerns: No Anes - Eval Final PreProcedure Day of Procedure 07/09/24 13:12 Patient weight: obese Heart: regular rate and rhythm Lungs: clear to auscultation Airway: Mallampati scale class II Neurological: alert and oriented Last oral intake: >/= 8 hours ASA classification: III Emergent: no Anesthetic plan: proceed Anesthesia type and monitoring: general GIVS and standard monitoring Results Review: All pre-operative results and documents have been reviewed as part of the pre-operative evaluation. Informed Consent: The patient's anesthetic plan and its attendant risks and benefits were discussed with the patient/family/POA. Questions were solicited and answers provided to the satisfaction of the patient/family/POA.
[2024-07-10 06:38] VITALS: BP 106/77; PULSE 63; RESP 16; TEMP 36.3; O2SAT 99
[2024-07-10] MEDS: LACTATED RINGERS 1,000 ML 150 ML IV CONT (06:43)
--- NOTE | 2024-07-10 07:18 | PM.HPGS ---
History of Present Illness History of Present Illness Consent: Risks, benefits, and alternatives have been discussed and questions answered. Patient agrees to proceed with procedure. Chief complaint: Family History of Colon Cancer Narrative: Maddi Waller is a 78 year old female presents for screening colonoscopy. Patient's current weight appetite and bowel movements are normal. She denies abdominal pain. Patient has had no bleeding. Patient's daughter recently was identified as having colon cancer at age 55. Patient reports previous colonoscopy 5 years ago was unremarkable. She presents today for screening colonoscopy. Review of Systems Review of Systems: All systems reviewed & are unremarkable except as noted in HPI and below PMFSH Past Medical History Medical History Chronic neck pain Dyslipidemia Essential (primary) hypertension Family history of colon cancer Hypothyroidism (acquired) Macular degeneration of both eyes Osteopenia Surgical History Surgical History History of cataract surgery (~02/2021) b/l Family History Family History Other Diabetes mellitus Social History Social History Smoking status: Former smoker Tobacco type: cigarettes Second hand tobacco smoke exposure: No Smoking end date: 10/22/03 Alcohol intake: current Alcohol use details: occasional Substance use: never Substance use type: does not use Lack of Transportation: No Lack of Food: Never True Current Housing: I Have Housing Concerned About Future Housing: No Difficulty Paying Gas/Electric Bills: No Difficulty Paying for Meds: No Currently Unemployed: No Education: High School Diploma/GED Difficulty w/ Childcare or Family Care: No Living arrangements: alone Occupation/Education: retired Gender identity (if verbalized by the patient): Female Spiritual care concerns: No Meds Home Medications and Allergies Home Medications Medication Instructions Recorded Confirmed Type thyroid (pork) 60 mg tablet 60 mg PO DAILY 12/27/20 07/10/24 History cholecalciferol (vitamin D3) 50 50 mcg PO DAILY 04/05/21 07/10/24 History mcg (2,000 unit) capsule ascorbic acid (vitamin C) 1,000 mg 1 g PO DAILY 06/07/22 07/10/24 History capsule biotin 10,000 mcg capsule 10,000 mcg PO DAILY 06/07/22 07/10/24 History ztafear-wmaonzlor-fiid tablet 1 tablet PO DAILY 06/07/22 07/10/24 History glucosamine-chondroitin 1,500 mg 30 ml PO DAILY 06/07/22 07/10/24 History -1,200 mg/30 mL oral liquid omega-3 acid ethyl esters 1 gram 1 cap PO DAILY 06/07/22 07/10/24 History capsule vitamins A,C,L-mpku-kujaeh 4,296 1 cap PO BID 06/07/22 07/10/24 History mcg-226 mg-90 mg capsule (PreserVision AREDS) amlodipine 5 mg tablet 5 mg PO DAILY #90 tabs 06/12/24 07/10/24 Rx rosuvastatin 10 mg tablet 10 mg PO QHS #90 tabs 06/12/24 07/10/24 Rx Allergies Allergy/AdvReac Type Severity Reaction Status Date / Time No Known Allergies Allergy Verified 07/10/24 06:37 Vital Signs Vital Signs - 24 hr 07/10/24 06:38 Temperature 97.3 F L Pulse Rate 63 Respiratory Rate 16 Blood Pressure 106/77 Pulse Oximetry 99 Oxygen Delivery Room Air Exam Narrative: Physical exam reveals patient to be alert. Vital signs stable. HEENT exam is unremarkable. Patient is anicteric. Lungs are clear to auscultation and percussion. Heart is without murmur or extra sounds. Abdomen bowel sounds are present soft nontender with no organomegaly. Digital external rectal exam normal. Assessment and Plan Assessment and plan (1) Family hx of colon cancer: Code(s): Z80.0 - Family history of malignant neoplasm of digestive organs Status: Acute Assessment and Plan: Patient's d
[2024-07-10 08:13] VITALS: BP 107/69; PULSE 92; RESP 18; O2SAT 99
[2024-07-10 08:23] VITALS: BP 121/98; PULSE 80; RESP 18; O2SAT 99
--- NOTE | 2024-07-10 08:28 | SUR.PHASEII ---
0813; PT ARRIVED INTO [facility] FROM ENDOSCOPY. DR AHUMADA WITH PT. ORDERED STAT EKG. STATES PT IN AFIB DURING COLONOSCOPY
--- NOTE | 2024-07-10 08:29 | SUR.PHASEII ---
0825; PT AWAKE AND ALERT NOW. DR AHUMADA AND DR GUERRERO AT BEDSIDE SPEAKING WITH PT REGARDING AFIB. PT TO FOLLOW UP WITH PCP OR GO TO LOCAL ER IF DIZZINESS, CP, SOB OCCUR. PT VERBALIZED UNDERSTANDING
[2024-07-10 08:33] VITALS: BP 131/70; PULSE 68; RESP 18; O2SAT 98
--- NOTE | 2024-07-10 08:59 | SUR.PHASEII ---
0845; PT SAO2 MONITOR SHOWS HR MID 40S. DR AHUMADA NOTIFIED. PT PLACED ON TELEMETRY. HR 66-90, AFIB. DR AHUMADA NOTIFIED. PT MAY GO HOME. SISTER AT BEDSIDE NOW. PT TO FOLLOW UP WITH PCP.
--- NOTE | 2024-07-10 10:17 | WPDANESPN ---
Anes - Prog Note Post-Op Date/Time: 07/10/24 10:17 Cardiovascular status: other (A fib) Respiratory status: normal Airway patency: baseline Mental status: baseline Post-Op hydration status: normal Vital Signs: Last Vital Signs Temp 36.3 C L 07/10/24 06:38 Pulse 68 07/10/24 08:33 Resp 18 07/10/24 08:33 BP 131/70 07/10/24 08:33 Pulse Ox 98 07/10/24 08:33 O2 Del Method Room Air 07/10/24 08:33 Pain Score (VAS): 0 I/O: Intake & Output 07/09/24 07/10/24 07/10/24 23:59 07:59 15:59 Intake Total 350 Balance 350 Post-procedural complaints: none Patient Feedback: Patient satisfied with anesthetic care. Other Findings: Patient noted to have A fib during colonoscopy. Heart rate was elevated above 100 so 2.5 mg of metoprolol given which brought heart rate down to normal range. Patient in recovery was asymptomatic, other vitals stable. Patient was given a rhythm strip documenting her A fib and instructed to call her primary care physician after she leaves the surgery center to treat this outpatient. However, patient was also instructed that if she feels heart racing, light headedness, shortness of breath, syncopal or near syncopal episodes or anything else out of the ordinary to go to the ER.
== END 2024-07-10 09:10 | disposition home or self-care (01) ==
PROVIDERS: PCP Family Medicine; Visit Provider Internal Medicine Gastroenterology
PROC: 0DJD8ZZ Inspection of Lower Intestinal Tract, Via Natural or Artificial Opening Endoscopic (ICD-10-PCS; CPT 45378; principal; 2024-07-10 08:00)
DX: Z80.0 Family history of malignant neoplasm of digestive organs (principal); K57.30 Diverticulosis of large intestine without perforation or abscess without bleeding; K64.8 Other hemorrhoids
CPT/HCPCS: G0105

== ENCOUNTER 2024-07-11 11:21 | Outpatient (CLI) | payer MEDICARE, SELFPAY ==
--- NOTE | 2024-07-11 11:31 | ECG_ITS ---
Test Date: 2024-07-11 11:38:39 Measurements Intervals [place] Rate: 126 P: 0 DC: 0 QRS: -10 QRSD: 111 T: 11 QT: 302 QTc: 438 Interpretive Statements ATRIAL FIBRILLATION WITH RAPID VENTRICULAR RESPONSE INCOMPLETE RIGHT BUNDLE BRANCH BLOCK BORDERLINE ST-T WAVE ABNORMALITY- ANT/INF LEADS BASELINE ARTIFACT- I, II, III, AVR, AVL, AVF ABNORMAL ECG No previous ECG available for comparison Electronically Signed On 07-11-2024 18:57:54 CDT by Colin Mendosa D.O.
== END 2024-07-11 11:22 | disposition home or self-care (01) ==
LOC: ANHCARD 11:24
PROVIDERS: PCP Family Medicine; Visit Provider Family Medicine
DX: I48.91 Unspecified atrial fibrillation (principal); I45.10 Unspecified right bundle-branch block
CPT/HCPCS: 93005

== ENCOUNTER 2024-07-14 12:06 | Observation (INO) | payer MEDICARE, SELFPAY ==
[2024-07-14] VITALS (31 sets, daily range): BP systolic 127–150; BP diastolic 75–98; PULSE 62–126; RESP 13–29; TEMP 36.3–36.8; O2SAT 93–99; BMI 30.6
--- NOTE | ~2024-07-14 | XR_ITS ---
EXAMINATION: XR chest 2V DATE: 07/14/2024 13:21 INDICATION: Atrial fibrillation. TECHNIQUE: Frontal and lateral views of the chest were obtained. COMPARISON: None. FINDINGS: There are airspace opacities at left lung base. No pleural effusion or pneumothorax. The he art size is normal. IMPRESSION: 1. Airspace opacities at left lung base, consistent with atelectasis versus pneumonia. Reviewed, dictated and finalized at location A. IMPRESSION: 1. Airspace opacities at left lung base, consistent with atelectasis versus pne umonia.
--- NOTE | ~2024-07-14 | MR_ITS ---
MRI of the brain Clinical History: Intermittent dizziness, atrial fibrillation Technique: Axial and sagittal T1-weighted images were acquired. These were followed by axial T2-weigh aparna, diffusion weighted, gradient, and FLAIR images. Following intravenous administration of 18 cc Mu ltiHance gadolinium, T1-weighted fat-sat imaging was performed in the axial and coronal planes. Findings: There is no acute infarct, intracranial hemorrhage or mass lesion. There are mild to modera te chronic microvascular ischemic changes in the periventricular white matter. Ventricles and subarachnoid spaces are unremarkable. Orbits are unremarkable. Paranasal sinuses and m astoid air cells are clear. Major intracranial flow voids appear intact. Sagittal midline structures are intact. No abnormal postcontrast enhancement identified. IMPRESSION: No acute infarct, intracranial hemorrhage, or mass lesion. Mild to moderate chronic microvascular ischemic changes. Reviewed, dictated and finalized at location .
--- NOTE | 2024-07-14 12:08 | ECG_ITS ---
Test Date: 2024-07-14 12:18:34 Measurements Intervals [place] Rate: 122 P: 0 IA: 0 QRS: -6 QRSD: 68 T: -19 QT: 305 QTc: 435 Interpretive Statements ATRIAL FIBRILLATION WITH RAPID VENTRICULAR RESPONSE INCOMPLETE RIGHT BUNDLE BRANCH BLOCK LOW QRS VOLTAGE IN PRECORDIAL LEADS BORDERLINE ST-T WAVE ABNORMALITY- ANT/INF LEADS BASELINE ARTIFACT- I, II, AVR, AVL, AVF, V3 ABNORMAL ECG Compared to ECG 07/11/2024 11:38:39 NO SIGNIFICANT CHANGE Electronically Signed On 07-14-2024 12:20:22 CDT by Colin Mendosa D.O.
--- NOTE | 2024-07-14 12:17 | PC.NURSE ---
Pt offered wheelchair but declined
--- NOTE | 2024-07-14 12:23 | PC.NURSE ---
Pt taken back to room via wheelchair
[2024-07-14 12:55] LABS: Basophils Percent Auto 0.6 % (0.2-1.2); Eosinophils Absolute Auto 0.1 K/mm3 (0-0.3); Eosinophils Percent Auto 1.3 % (0-4.4); Hematocrit 43.7 % (37.0-47.0); Hemoglobin 14.4 g/dL (12.0-15.0); Immature Granulocyte Absolute 0.02 K/mm3 (0.00-0.031); Immature Granulocyte Percent A 0.3 % (0-0.5); Lymphocytes Absolute Auto 2.15 K/mm3 (0.9-3.2); Mean Corpuscular Hemoglobin 29.9 pg (26-34); Mean Corpuscular Volume 90.7 fl (80-100); Mean Platelet Volume 10.3 fl (7.4-10.4); Monocytes Absolute Auto 0.6 K/mm3 (0.1-0.6); Monocytes Percent Auto 8.9 % (2.6-8.5); Neutrophils Percent Auto 57.9 % (45.5-73.1); Platelet Count Result 245 k/mm3 (150-375); Red Blood Count 4.82 M/mm3 (4.2-5.4); Red Cell Distribution Width 14.6 % (11.5-14.5); White Blood Count 6.9 K/mm3 (4.5-10.0)
[2024-07-14 13:07] LABS: Alanine Aminotransferase 20 U/L (6-35); Albumin Level 4.4 g/dL (3.5-5.1); Alkaline Phosphatase 71 U/L (38-126); Anion Gap 9 mmol/L (4-12); Aspartate Amino Transferase 30 U/L (14-36); Bilirubin,Total 0.5 mg/dL (0.2-1.3); Blood Urea Nitrogen 20 mg/dL (7-17); Calcium 8.9 mg/dL (8.4-10.2); Carbon Dioxide 25 mmol/L (22-30); Chloride 107 mmol/L (98-107); Estimated CRCL calculation 53 ml/min; Estimated Glomerular Filt Rate > 60; Glucose 96 mg/dL (65-110); Lipase 173 U/L (23-300); Potassium 4.1 mmol/L (3.4-5.0); Sodium 141 mmol/L (137-145)
[2024-07-14 13:10] LABS: INR 1.1; Prothrombin Time 14.5 Seconds (11.1-14.7)
[2024-07-14 13:18] LABS: Troponin I < 0.012 ng/mL (0.000-0.034)
[2024-07-14] MEDS: ASPIRIN 81 MG CHEWABLE TABLET 324 MG PO (13:41)
[2024-07-14] MEDS: dilTIAZem HCl INJ 25 MG/5 ML VIAL 10 MG IV PUSH (13:41)
[2024-07-14] MEDS: ENOXAPARIN 100 MG/ML SYRINGE 91 MG SUB-Q (14:05)
--- NOTE | 2024-07-14 14:27 | ED.GENADULT ---
HPI - General Adult General Chief complaint: Arrhythmia/Palpitations Stated complaint: afib, dizzy Time Seen by Provider: 07/14/24 13:14 History of Present Illness HPI narrative: This is a 70-year-old female presenting ED with a chief complaint of atrial fibrillation. Patient received colonoscopy several days ago. At that time she was noted to be in AFib. Under primary care physician found out she was instructed to come to the hospital for further eval. The patient's only symptoms include being intermittently dizzy for the last several months. It comes and goes in they had been unable to find a reason. However since the patient has been in AFib for the last 5 days she notes the dizziness has been constant and persistent. It is worse when she stands up and when she walks around. Patient denies any neurologic deficits such as double vision dysarthria dysphagia, loss of coordination or extremity weakness. Related Data Home Medications Medication Instructions Recorded Confirmed thyroid (pork) 60 mg tablet 60 mg PO DAILY 12/27/20 07/10/24 cholecalciferol (vitamin D3) 50 50 mcg PO DAILY 04/05/21 07/10/24 mcg (2,000 unit) capsule ascorbic acid (vitamin C) 1,000 mg 1 g PO DAILY 06/07/22 07/10/24 capsule biotin 10,000 mcg capsule 10,000 mcg PO DAILY 06/07/22 07/10/24 twnifub-kbfehwmib-arer tablet 1 tablet PO DAILY 06/07/22 07/10/24 glucosamine-chondroitin 1,500 mg 30 ml PO DAILY 06/07/22 07/10/24 -1,200 mg/30 mL oral liquid omega-3 acid ethyl esters 1 gram 1 cap PO DAILY 06/07/22 07/10/24 capsule vitamins A,C,D-nljq-plqnjf 4,296 1 cap PO BID 06/07/22 07/10/24 mcg-226 mg-90 mg capsule (PreserVision AREDS) Allergies Allergy/AdvReac Type Severity Reaction Status Date / Time No Known Allergies Allergy Verified 07/14/24 12:50 [facility] Past Medical History Medical History Chronic neck pain Dyslipidemia Essential (primary) hypertension Family history of colon cancer Hypothyroidism (acquired) Macular degeneration of both eyes Osteopenia Surgical History Surgical History History of cataract surgery (~02/2021) b/l Family History Family History Other Diabetes mellitus Social History Social History Smoking status: Former smoker Tobacco type: cigarettes Second hand tobacco smoke exposure: No Smoking end date: 10/22/03 Alcohol intake: current Alcohol use details: occasional Substance use: never Substance use type: does not use Lack of Transportation: No Lack of Food: Never True Current Housing: I Have Housing Concerned About Future Housing: No Difficulty Paying Gas/Electric Bills: No Difficulty Paying for Meds: No Currently Unemployed: No Education: High School Diploma/GED Difficulty w/ Childcare or Family Care: No Living arrangements: alone Occupation/Education: retired Gender identity (if verbalized by the patient): Female Spiritual care concerns: No Exam Narrative: APPEARANCE: No apparent distress. Head: atraumatic. EYES: EOMI, NOSE: Atraumatic NECK: Trachea midline RESPIRATORY: No increased rate of breathing, clear to auscultation CARDIOVASCULAR: Tachycardic, irregular, no peripheral edema ABDOMINAL: Non-distended soft nontender MUSCULOSKELETAl: No obvious deformities NEURO: Alert. Moving 4/4 extremities SKIN:: Warm, dry. Normal color PSYCHIATRIC: Normal affect Course Vital Signs Vital signs: Vital Signs Temperature 97.4 F L 07/14/24 12:10 Pulse Rate 64 07/14/24 12:10 Respiratory Rate 15 07/14/24 12:10 Blood Pressure 150/93 H 07/14/24 12:10 Pulse Oximetry 97 07/14/24 12:10 Oxygen Delivery Room Air 07/14/24 12:10 Temperature 97.4 F L 07/14/24 12:10 Pulse Rate 100 07/14/24 12:47 Respiratory R
[2024-07-14] MEDS: SODIUM CHLORIDE 0.9% IV 1,000 ML 999 ML IV CONT (14:43)
--- NOTE | 2024-07-14 15:39 | ECG_ITS ---
Test Date: 2024-07-14 15:42:29 Measurements Intervals [place] Rate: 96 P: 0 VA: 0 QRS: 0 QRSD: 81 T: -55 QT: 354 QTc: 449 Interpretive Statements ATRIAL FIBRILLATION RSR' IN V1 OR V2, PROBABLY NORMAL VARIANT LOW QRS VOLTAGE IN PRECORDIAL LEADS BORDERLINE ST-T WAVE ABNORMALITY- DIFFUSE LEADS BASELINE ARTIFACT- AVF ABNORMAL ECG Compared to ECG 07/14/2024 12:18:34 HEART RATE HAS DECREASED Electronically Signed On 07-14-2024 18:44:19 CDT by Colin Mendosa D.O.
[2024-07-14 16:11] LABS: Amphetamine Screen Urine Negative (Negative); Barbiturate Screen Urine Negative (Negative); Benzodiazepines Screen Urine Negative (Negative); Cannabinoid Screen Urine Negative (Negative); Cocaine Screen Urine Negative (Negative); Methadone Screen Urine Negative (Negative); Opiate Screen Urine Negative (Negative); Phencyclidine Screen Urine Negative (Negative)
[2024-07-14 16:20] LABS: Troponin I < 0.012 ng/mL (0.000-0.034)
[2024-07-14 16:59] LABS: Thyroid Stimulating Hormone Reflex < 0.015 uIU/mL (0.465-4.68)
--- NOTE | 2024-07-14 17:25 | PM.IMHP ---
H&P: HPI History of Present Illness Date/Time: 07/14/24 18:00 Chief Complaint: Dizziness, atrial fibrillation. Narrative: This is a very pleasant 78-year-old female hypertension, dyslipidemia, and hypothyroidism who presented to the emergency department via private vehicle for evaluation of dizziness and new onset atrial fibrillation. The patient provides the following history. She had a colonoscopy last week an anesthesiologist hold her that her EKG showed atrial fibrillation of which she had no previous knowledge. She saw her doctor on Sunday and a repeat EKG showed the same and today she was told to come to the ED for further evaluation. With further questioning she reports having intermittent dizziness the last couple of months with no obvious etiology. In fact she was referred to a neurologist and has an MRI scheduled for tomorrow. She denies overt vertigo but reports that she feels off balance when it occurs. It typically only happens while standing and it is not related to position changes. She has not had any falls. She denies acute visual changes (she has macular degeneration and ?wavy? vision on occasion), facial droop, difficulties speaking and swallowing, chest pain, pleuritic pain, palpitations, orthopnea, paroxysmal nocturnal dyspnea, lower extremity edema, calf pain, shortness of breath, nausea, vomiting, sweats, syncope, and near syncope. She drinks a few cups of coffee a day and denies significant alcohol use. She has not had any recent changes in her thyroid medication. She and her friend walk 1 to 2 miles several times a week and she has not had issue with that. Mother had atrial fibrillation. In the ED: Vital signs were stable on arrival. EKG showed rapid atrial fibrillation with a rate of 122, incomplete right bundle-branch block, borderline ST T-wave abnormalities in the anterior and inferior leads. CMP and CBC were pretty unremarkable. Urine drug screen was negative. Chest x-ray showed airspace opacities at the left lung base consistent with atelectasis versus pneumonia. She was given 10 mg IV diltiazem with improvement in her heart rate and she is being admitted in this setting for further evaluation. Review of Systems Review of Systems: 12 systems were reviewed and are negative except for as per HPI. [facility] Past Medical History Medical History Chronic neck pain Dyslipidemia Essential (primary) hypertension Hypothyroidism (acquired) Macular degeneration of both eyes Osteopenia Surgical History Surgical History History of bilateral cataract extraction (02/2021) Family History Family History Other Diabetes mellitus Social History Social History Social History: Surrogate medical decision maker: Leticiafatoumata Mir, sibling. Code status: Full code. Years smoked: 20 Smoking status: Former smoker Second hand tobacco smoke exposure: No Alcohol intake: current Alcohol use details: occasional Substance use: never Substance use type: does not use Do You Feel Safe in your Home?: Yes Lack of Transportation: No Lack of Food: Never True Current Housing: I Have Housing Concerned About Future Housing: No Difficulty Paying Gas/Electric Bills: No Difficulty Paying for Meds: No Currently Unemployed: No Education: High School Diploma/GED Difficulty w/ Childcare or Family Care: No Living arrangements: alone Occupation/Education: retired Spiritual care concerns: No Meds Home Medications and Allergies Home Medications Medication Instructions Recorded Confirmed Type thyroid (pork) 60 mg tablet 60 mg PO DAILY 12/27/20 07/14/24 History cholecalciferol (vitamin D3) 50 50 mcg PO DAILY 04/05/21 07/14/24 History mcg (2,000 unit) capsule ascorbic ac
[2024-07-14 17:55] LABS: Free T4 Free Thyroxine Reflex 1.17 ng/dL (0.78-2.19)
--- NOTE | 2024-07-14 18:00 | PM.CNCAR ---
Assessment and Plan Assessment and plan (1) Dizziness: Code(s): R42 - Dizziness and giddiness Status: Acute Assessment and Plan: Intermittent while upright only. Advise to keep well hydrated. Check echo. (2) A-fib: Code(s): I48.91 - Unspecified atrial fibrillation Status: Acute Assessment and Plan: Probably due to age, hyperthyroid. [id number] 3. On Lovenox. Stop Lovenox. Start Eliquis 5 mg BID. Started Metoprolol Tartate 25 mg BID for rate control. Regulate TSH. (3) Essential (primary) hypertension: Code(s): I10 - Essential (primary) hypertension Status: Acute Assessment and Plan: Stable. (4) Dyslipidemia: Code(s): E78.5 - Hyperlipidemia, unspecified Status: Acute Assessment and Plan: On Rosuvastatin. History of Present Illness History of Present Illness Consult date/time: 07/14/24 18:00 Reason For Visit: afib w /rvr Narrative: 78 yr old woman presents to ED with dizziness. She has a history of hypertension,dyslipidemia. Reports she has been having intermittent unsteadiness on her feet while standing or walking for over a year. She had colonoscopy last week and noted she was in atrial fibrillation. She can walk 1-2 miles without any problems. Denies chest pain, sob, orthopnea, PND, edema, palpitations. Review of Systems Review of Systems: All systems reviewed & are unremarkable except as noted in HPI and below Constitutional: Constitutional: Reports as per HPI, Denies chills and Denies fever(s) Cardiovascular: Cardiovascular: Reports as per HPI, Denies chest pain and Denies irregular heart rhythm Respiratory: Respiratory: Reports as per HPI and Denies dyspnea Gastrointestinal: Gastrointestinal: Reports as per HPI and Denies abdominal pain Genitourinary: Genitourinary: Reports as per HPI and Denies dysuria Musculoskeletal: Musculoskeletal: Reports as per HPI Neurologic: Reports as per HPI, Reports dizziness and Denies syncope FOR[facility]LY [facility] Past Medical History Medical History Chronic neck pain Dyslipidemia Essential (primary) hypertension Hypothyroidism (acquired) Macular degeneration of both eyes Osteopenia Surgical History Surgical History History of bilateral cataract extraction (02/2021) Family History Family History Other Diabetes mellitus Social History Social History Social History: Surrogate medical decision maker: Leticia Mir, sibling. Code status: Full code. Years smoked: 20 Smoking status: Former smoker Second hand tobacco smoke exposure: No Alcohol intake: current Alcohol use details: occasional Substance use: never Substance use type: does not use Do You Feel Safe in your Home?: Yes Lack of Transportation: No Lack of Food: Never True Current Housing: I Have Housing Concerned About Future Housing: No Difficulty Paying Gas/Electric Bills: No Difficulty Paying for Meds: No Currently Unemployed: No Education: High School Diploma/GED Difficulty w/ Childcare or Family Care: No Living arrangements: alone Occupation/Education: retired Spiritual care concerns: No Meds Home Medications and Allergies Home Medications Medication Instructions Recorded Confirmed Type thyroid (pork) 60 mg tablet 60 mg PO DAILY 12/27/20 07/14/24 History cholecalciferol (vitamin D3) 50 50 mcg PO DAILY 04/05/21 07/14/24 History mcg (2,000 unit) capsule ascorbic acid (vitamin C) 1,000 mg 1 g PO DAILY 06/07/22 07/14/24 History capsule biotin 10,000 mcg capsule 10,000 mcg PO DAILY 06/07/22 07/14/24 History miesujc-hbichuwbx-zdor tablet 1 tablet PO DAILY 06/07/22 07/14/24 History glucosamine-chondroitin 1,500 mg 30 ml PO DAILY 06/07/22 07/10/24 H
[2024-07-14 18:45] LABS: Troponin I < 0.012 ng/mL (0.000-0.034)
[2024-07-14] MEDS: OPTI-GEN TAB 1 TABLET PO (21:43)
[2024-07-14] MEDS: ROSUVASTATIN 10 MG TABLET PO (21:43)
[2024-07-14] MEDS: METOPROLOL TARTRATE 25 MG TABLET PO (21:43)
[2024-07-15] VITALS (9 sets, daily range): BP systolic 108–140; BP diastolic 72–87; PULSE 61–90; RESP 16–18; TEMP 36.2–36.6; O2SAT 96–98
[2024-07-15 05:51] LABS: Anion Gap 6 mmol/L (4-12); Blood Urea Nitrogen 13 mg/dL (7-17); Calcium 8.6 mg/dL (8.4-10.2); Carbon Dioxide 27 mmol/L (22-30); Chloride 108 mmol/L (98-107); Estimated CRCL calculation 67 ml/min; Estimated Glomerular Filt Rate > 60; Glucose 88 mg/dL (65-110); Magnesium 1.9 mg/dL (1.6-2.3); Potassium 4.3 mmol/L (3.4-5.0); Sodium 141 mmol/L (137-145)
--- NOTE | 2024-07-15 06:00 | ECHO_ITS ---
Patient Info Name: Maddi Waller Age: 78 years : 1945 Gender: Female Ht: 68 in Wt: 201 lbs BSA: 2.12 m2 HR: 82 bpm BP: 134 / 78 mmHg Heart Rhythm: Atrial Fibrillation Technical Quality: Fair Exam Date: 07/15/2024 10:11 AM Exam Location: Echo Lab Patient Status: Outpatient Admit Date: 07/14/2024 Staff Ordering Physician: Carmine aCsas MD Family Consumer Science Teacher: Katy Dela Cruz RDCS Attending Provider: Erendira Phillips APRN Referring Physician: Augusto SALAZAR; Exam Type: CA echo dop color flow w con Study Info Indications - Afib Complete two-dimensional, color flow and Doppler transthoracic echocardiogram is performed with contrast to opacify the left ventricle and to improve the deliniation of the left ventricle endocardial borders. Contrast/Agitated Saline Contrast/Ag. Saline: Definity Amount: 2.00 ml Administered By: Kayt Dela Cruz RDCS Existing IV Access: Yes IV Access Condition: patent with no signs of infiltration Summary 1. Definity contrast administered improved wall motion interpretation. 2. Left ventricular chamber dimension is normal. 3. Left ventricular systolic function is normal, estimated at 60-65%. 4. The left ventricular diastolic function is normal. 5. E/e' 9 is minimally elevated. 6. Atrial fibrillation. 7. Left atrial chamber dimension is moderately enlarged. 8. There is mild aortic valve sclerosis. 9. There is mild mitral valve regurgitation. 10. There is moderate tricuspid valve regurgitation. 11. No pulmonary hypertension, estimated pulmonary arterial systolic pressure is 35 mmHg. Left Ventricle Definity contrast administered improved wall motion interpretation. E/e' 9 is minimally elevated. Atrial fibrillation. Left ventricular chamber dimension is normal. Left ventricular systolic function is normal, estimated at 60-65%. The left ventricular diastolic function is normal. Right Ventricle Right ventricular systolic function is normal and with normal TAPSE 1.9 cm. Right ventricular chamber dimension is normal. Left Atria Left atrial chamber dimension is moderately enlarged. Right Atria Right atrial chamber dimension is normal. Aortic Valve The aortic valve is trileaflet. There is mild aortic valve sclerosis. There is no aortic valve stenosis. There is no aortic valve regurgitation. Pulmonic Valve There is no pulmonic regurgitation. Mitral Valve There is no mitral valve stenosis. There is mild mitral valve regurgitation. Tricuspid Valve There is moderate tricuspid valve regurgitation. No pulmonary hypertension, estimated pulmonary arterial systolic pressure is 35 mmHg. Pericardium/Pleural There is no pericardial effusion. Inferior Vena Cava Normal inferior vena cava with >50% collapse upon inspiration consistent with normal right atrial pressure, 5 mmHg. Aorta The aortic root size at the sinus of Valsalva is normal. Left Ventricular Outflow Tract Name Value Normal LVOT 2D LVOT Diameter 1.98 cm LVOT Doppler LVOT Peak Gradient 2 mmHg LVOT Mean Gradient 1 mmHg LVOT VTI 15.21 cm LVOT VTI/AV VTI
--- NOTE | 2024-07-15 07:55 | PM.IMPN ---
Progress Note: A&P Assessment and Plan (1) Atrial fibrillation with rapid ventricular response: Code(s): I48.91 - Unspecified atrial fibrillation Status: Acute Assessment and Plan: Patient presented to the ER for evaluation of intermittent dizziness and new onset AFib. EKG on admission showed a rapid AFib with rates in the 120s. Patient received 10 mg of IV diltiazem and is now a fib with rate of 96. Cardiology was consulted, recs appreciated On telemetry, echo pending [id number] 3, started on Eliquis 5 mg b.i.d. Likely secondary to hyperthyroidism Cardiology start metoprolol tartrate 25 mg b.i.d. (2) Hypothyroidism (acquired): Code(s): E03.9 - Hypothyroidism, unspecified Status: Acute Assessment and Plan: History of hypothyroidism for which she takes [place] Thyroid 60 mg daily Thyroid hormone on hold TSH less than 0.015, free T4-1.7, free T3 pending (3) Essential (primary) hypertension: Code(s): I10 - Essential (primary) hypertension Status: Acute Assessment and Plan: Blood pressures reviewed and are stable. Continue amlodipine Started on metoprolol (4) Dyslipidemia: Code(s): E78.5 - Hyperlipidemia, unspecified Status: Acute Assessment and Plan: Lipid panel from May of this year reviewed Continue rosuvastatin Subjective Date/time seen: 07/15/24 07:55 Review of Systems Review of Systems: 12 systems were reviewed and are negative except for as per HPI. All systems reviewed & are unremarkable except as noted in HPI and below Exam Narrative: General: appears comfortable, in no acute distress Respiratory: breathing is unlabored with even chest rise/fall, lungs are clear without wheezing, rhonchi, and crackles Cardiovascular: Rate and rhythm regular, normal s1s2, no murmur Abdomen: Soft, round, non-tender, active bowel sounds Extremities: No cyanosis, edema, clubbing. Pulses 2/2 Neuro: A&O x 4 Skin: Warm, dry, intact Objective Data Vital Signs Vital Signs: Vital Signs - 24 hr 07/14/24 12:10 07/14/24 12:45 07/14/24 12:45 Temperature 97.4 F L Pulse Rate 64 99 Respiratory Rate 15 Blood Pressure 150/93 H Pulse Oximetry 97 96 Oxygen Delivery Room Air Room Air 07/14/24 12:47 07/14/24 12:42 07/14/24 12:49 Temperature Pulse Rate 100 121 H 110 H Respiratory Rate 19 17 15 Blood Pressure 129/87 Pulse Oximetry 95 96 96 Oxygen Delivery 07/14/24 13:00 07/14/24 13:01 07/14/24 13:22 Temperature Pulse Rate 87 99 122 H Respiratory Rate 17 17 20 Blood Pressure 128/97 H Pulse Oximetry 94 94 97 Oxygen Delivery 07/14/24 13:30 07/14/24 13:45 07/14/24 14:00 Temperature Pulse Rate 126 H 95 91 Respiratory Rate 29 H 16 16 Blood Pressure Pulse Oximetry 95 93 97 Oxygen Delivery 07/14/24 14:10 07/14/24 14:21 07/14/24 14:30 Temperature Pulse Rate 91 89 85 Respiratory Rate 15 19 19 Blood Pressure 143/92 H Pulse Oximetry 96 99 94 Oxygen Delivery 07/14/24 14:31 07/14/24 14:32 07/14/24 14:50 Temperature Pulse Rate 87 84 92 Respiratory Rate 21 H 16 13 Blood Pressure 141/98 H Pulse Oximetry 95 95 97 Oxygen Delivery 07/14/24 15:10 07/14/24 15:15 07/14/24 15:45 Temperature Pulse Rate 87 83 90 Respiratory Rate 16 21 H 15 Blood Pressure Pulse Oximetry 95 98 99 Oxygen Delivery 07/14/24 16:10 07/14/24 16:15 07/14/24 16:49 Temperature 97.9 F Pulse Rate 82 85 Respiratory Rate 19 22 H Blood Pressure Pulse Oximetry 97 94 Oxygen Delivery 07/14/24 16:54 07/14/24 19:16 07/14/24 21:43 Temperature 97.9 F Pulse Rate 97 62 Respiratory Rate 17 Blood Pressure 127/75 Pulse Oximetry 99 Oxygen Delivery Room Air 07/14/24 17:37 07/14/24 22:00 07/14/24 22:05 Temperature 98.2 F 98.2 F 98.2 F Pulse Rate 88 Respiratory Rate 24 H Blood Pressure 140/78 Pulse Oximetry 96 Oxygen Delivery 07/14/24 2
--- NOTE | 2024-07-15 08:48 | PM.PNCARD ---
Progress Note: A&P Assessment and Plan (1) Dizziness: Code(s): R42 - Dizziness and giddiness Status: Acute Assessment and Plan: Intermittent while upright only. Advise to keep well hydrated. 07/15/24 Echo: EF 60-65%, mod LAE, mild MR, mod TR. (2) A-fib: Code(s): I48.91 - Unspecified atrial fibrillation Status: Acute Assessment and Plan: Probably due to age, hyperthyroid. [id number] 3. On Eliquis. Increase Metoprolol Tartate 50 mg BID for rate control. Regulate TSH. February d/c home from cardiology standpoint and f/u with me in 1 week. (3) Essential (primary) hypertension: Code(s): I10 - Essential (primary) hypertension Status: Acute Assessment and Plan: Stable. Stop Amlodipine as Metoprolol was increased. (4) Dyslipidemia: Code(s): E78.5 - Hyperlipidemia, unspecified Status: Acute Assessment and Plan: On Rosuvastatin. Subjective Date/time seen: 07/15/24 08:48 Interval history: Denies chest pain or sob. No dizziness at this moment. Exam Const: General: cooperative, healthy appearing and comfortable Orientation/consciousness: oriented to person, oriented to place and oriented to time Resp: Auscultation: clear to auscultation bilaterally, no crackles, no rales, no rhonchi and no wheezes Cardio: Rate: regular rate Rhythm: abnormal rhythm Heart sounds: no murmurs Peripheral pulses: dorsalis pedis present Neuro: General: oriented to person, oriented to place and oriented to time Extrem: Right lower extremity: no edema Left lower extremity: no edema Objective Data Vital Signs Vital Signs: Vital Signs - 24 hr 07/14/24 12:10 07/14/24 12:45 07/14/24 12:45 Temperature 97.4 F L Pulse Rate 64 99 Respiratory Rate 15 Blood Pressure 150/93 H Pulse Oximetry 97 96 Oxygen Delivery Room Air Room Air 07/14/24 12:47 07/14/24 12:42 07/14/24 12:49 Temperature Pulse Rate 100 121 H 110 H Respiratory Rate 19 17 15 Blood Pressure 129/87 Pulse Oximetry 95 96 96 Oxygen Delivery 07/14/24 13:00 07/14/24 13:01 07/14/24 13:22 Temperature Pulse Rate 87 99 122 H Respiratory Rate 17 17 20 Blood Pressure 128/97 H Pulse Oximetry 94 94 97 Oxygen Delivery 07/14/24 13:30 07/14/24 13:45 07/14/24 14:00 Temperature Pulse Rate 126 H 95 91 Respiratory Rate 29 H 16 16 Blood Pressure Pulse Oximetry 95 93 97 Oxygen Delivery 07/14/24 14:10 07/14/24 14:21 07/14/24 14:30 Temperature Pulse Rate 91 89 85 Respiratory Rate 15 19 19 Blood Pressure 143/92 H Pulse Oximetry 96 99 94 Oxygen Delivery 07/14/24 14:31 07/14/24 14:32 07/14/24 14:50 Temperature Pulse Rate 87 84 92 Respiratory Rate 21 H 16 13 Blood Pressure 141/98 H Pulse Oximetry 95 95 97 Oxygen Delivery 07/14/24 15:10 07/14/24 15:15 07/14/24 15:45 Temperature Pulse Rate 87 83 90 Respiratory Rate 16 21 H 15 Blood Pressure Pulse Oximetry 95 98 99 Oxygen Delivery 07/14/24 16:10 07/14/24 16:15 07/14/24 16:49 Temperature 97.9 F Pulse Rate 82 85 Respiratory Rate 19 22 H Blood Pressure Pulse Oximetry 97 94 Oxygen Delivery 07/14/24 16:54 07/14/24 19:16 07/14/24 21:43 Temperature 97.9 F Pulse Rate 97 62 Respiratory Rate 17 Blood Pressure 127/75 Pulse Oximetry 99 Oxygen Delivery Room Air 07/14/24 17:37 07/14/24 22:00 07/14/24 22:05 Temperature 98.2 F 98.2 F 98.2 F Pulse Rate 88 Respiratory Rate 24 H Blood Pressure 140/78 Pulse Oximetry 96 Oxygen Delivery 07/14/24 22:05 07/14/24 22:05 07/14/24 22:05 Temperature 98.2 F Pulse Rate 88 85 Respiratory Rate Blood Pressure Pulse Oximetry Oxygen Delivery 07/14/24 22:05 07/14/24 22:05 07/14/24 22:06 Temperature Pulse Rate 78 Respiratory Rate 24 H 20 Blood Pressure Pulse Oximetry Oxygen Delivery 07/14/24 22:06 07/14/24 22:06 07/14/24 22:06 Temperature Pulse Rate
[2024-07-15] MEDS: ASCORBIC ACID 500 MG TABLET 1000 MG PO (09:26)
[2024-07-15] MEDS: OPTI-GEN TAB 1 TABLET PO (09:27)
[2024-07-15] MEDS: METOPROLOL TARTRATE 25 MG TABLET PO (09:27)
[2024-07-15] MEDS: APIXABAN 5 MG TABLET PO (09:27)
[2024-07-15] MEDS: CHOLECALCIFEROL 1,000 UNITS TABLET 2000 UNITS PO (09:27)
[2024-07-15] MEDS: amLODIPine BESYLATE 5 MG TABLET PO (09:35)
[2024-07-15] MEDS: PERFLUTREN LIPID MICROSPHERES 1.5 ML VIAL DILUTED TO 10 ML TOTAL VOLUME IV PUSH (10:55)
--- NOTE | 2024-07-15 11:15 | IVDEFINITY ---
Prior to administration of IV Definity the patient was educated on the risks and benefits of the imaging enhancing agent including potential adverse side effects. The patient verbalized understanding. Allergies were verified. No exclusion criteria were identified and at least one of the following inclusion criteria were met: 1) physician request, 2) patient technically difficult to image (per the [place] [employer]chocardi[employer] guidelines of two or more segments not discernable within the apical view), or 3) questionable left ventricular function. ?
--- NOTE | 2024-07-15 12:39 | PC.NURSE ---
On 07/15/24, the student, [Yazan Luna], provided care and completed [facility] documentation on this patient. I have reviewed the student's documentation and agree with the findings.
--- NOTE | 2024-07-15 14:19 | PM.DS ---
DS: Admitting Diagnosis Discharge Date 07/15/24 Admitting Diagnosis irregular heart rate DS: Discharge Diagnosis Discharge Diagnosis (1) Atrial fibrillation with rapid ventricular response: Code(s): I48.91 - Unspecified atrial fibrillation Status: Acute (2) Hypothyroidism (acquired): Code(s): E03.9 - Hypothyroidism, unspecified Status: Acute (3) Essential (primary) hypertension: Code(s): I10 - Essential (primary) hypertension Status: Acute (4) Dyslipidemia: Code(s): E78.5 - Hyperlipidemia, unspecified Status: Acute DS: Summary Hospital Course Reason for hospitalization: Atrial fibrillation with a rapid ventricular response Hospital Course: This is a 78-year-old female who presented to the hospital with complaints of irregular heart rate. She is found to be in atrial fibrillation with rapid ventricular response with a rate 120. Cardiology was consulted started the patient on metoprolol tartrate 50 mg b.i.d.. She was also started on Eliquis. Echocardiogram was performed and showed normal left ventricular systolic function with an EF estimated at 60-65% as well as a normal diastolic function. MRI was performed which was unremarkable. On admission the patient's TSH was found to be less than 0.015. T4 was normal. Her thyroid hormone was held. Overall she did well and was discharge home in stable condition with cardiology follow up advised in 1 week. She was also instructed to follow up with her PCP in the next 1 week regarding her TSH and resuming her thyroid medication. Time Spent with Patient Time attestation: Total time spent providing and/or coordinating discharge services:70 Exam Narrative: General: appears comfortable, in no acute distress Respiratory: breathing is unlabored with even chest rise/fall, lungs are clear without wheezing, rhonchi, and crackles Cardiovascular: Rate and rhythm irregular, normal s1s2, no murmur Abdomen: Soft, round, non-tender, active bowel sounds Extremities: No cyanosis, edema, clubbing. Pulses 2/2 Neuro: A&O x 4 Skin: Warm, dry, intact DS: Data Data Completed and Pending Labs on day of discharge: Labs from last 24 hours 07/15/24 07/14/24 07/14/24 05:30 18:04 15:37 Sodium 141 Potassium 4.3 Chloride 108 H Carbon Dioxide 27 Anion Gap 6 BUN 13 D Creatinine 0.70 Estim Creat Clear Calc 67 Estimated GFR > 60 Glucose 88 Calcium 8.6 Magnesium 1.9 Troponin I < 0.012 TSH (Reflex) Free T4 Free T3 pg/mL Pending Total T3 Urine Opiates Screen Negative Urine Methadone Screen Negative Ur Barbiturates Screen Negative Ur Phencyclidine Scrn Negative Ur Amphetamine Screen Negative U Benzodiazepines Scrn Negative Urine Cocaine Screen Negative U Cannabinoids Screen Negative 07/14/24 15:30 Sodium Potassium Chloride Carbon Dioxide Anion Gap BUN Creatinine Estim Creat Clear Calc Estimated GFR Glucose Calcium Magnesium Troponin I < 0.012 TSH (Reflex) < 0.015 L Free T4 1.17 Free T3 pg/mL Total T3 1.30 Urine Opiates Screen Urine Methadone Screen Ur Barbiturates Screen Ur Phencyclidine Scrn Ur Amphetamine Screen U Benzodiazepines Scrn Urine Cocaine Screen U Cannabinoids Screen Discharge Plan Discharge Attending physician on discharge: Mello Michel Consulting providers: Colin Mendosa Discharging Clinician: Erendira Phillips Anticipated Discharge Date/Time: 07/15/24 14:08 Patient Disposition: Home, Self-Care Activity: february shower Diet: regular Discharge Instructions: You were admitted after coming in with a rapid, irregular heart rate called atrial fibrillation. Cardiology was consulted here and started you on metoprolol 50 mg PO BID as well as Eliquis 5 mg PO BID. It is likely that this dizziness you have been experiencing has been from a-fib. While you were here we completed an MRI an
[2024-07-16 02:23] LABS: T3 Free 3.3 pg/mL (2.3-4.2)
== END 2024-07-15 15:25 | disposition home or self-care (01) ==
LOC: ANHED 14:53 → ANH2MED 16:03
PROVIDERS: Physician Assistant; Admitting Provider Internal Medicine; Emergency Provider Emergency Medicine; PCP Family Medicine; Visit Provider Nurse Practitioner Acute Care
DX: I48.91 Unspecified atrial fibrillation (principal); I10 Essential (primary) hypertension; E78.5 Hyperlipidemia, unspecified; I08.3 Combined rheumatic disorders of mitral, aortic and tricuspid valves; E03.9 Hypothyroidism, unspecified; H35.30 Unspecified macular degeneration; Z87.891 Personal history of nicotine dependence; Z79.899 Other long term (current) drug therapy
CPT/HCPCS: 36415; 70553; 71046; 80048; 80053; 80307; 83690; 83735; 84439; 84443; 84480; 84484; 85025; 85610; 85730; 93005; 96361; 96372; 96374; 96375; 99285; A9270; A9577; C8929; G0378; J1650; J7030; Q9957

== ENCOUNTER 2024-12-16 10:22 | Outpatient (CLI) | payer MEDICARE, SELFPAY ==
--- OUTSIDE RECORDS SUMMARY | 2024-12-16 12:06 | XMS_ITS | Referral Summary ---
Author Organization [facility] Physician Office Building 1 Address [address] [place] [address] Care Team Providers Care Bank Note Designer Name Role Phone El Bertrand MD Primary Care Provider Remy Henley MD Unavailable Allergies No known active allergies Medications vitamins A,C,J-fawu-ioxdzh 7,160113-100 vwwc-jh-idsk tablet,delayed release (DR/EC) Take by mouth 2 (two) times a day Active ascorbic acid (VITAMIN C) 1,000 mg tablet Take 1 tablet (1,000 mg total) by mouth daily Active fish oil-dha-epa 1,200-144-216 mg capsule Take by mouth Active gluc perez/chondro perez A/vit C/Mn (GLUCOSAMINE 1500 COMPLEX ORAL) Take by mouth Active biotin 10,000 mcg capsule Take by mouth Active calcium-magnesium- zinc 333-133-5 mg tablet Take 1 tablet by mouth daily Active ergocalciferol, vitamin D2, 50 mcg (2,000 unit) capsule Take by mouth Active polymyxin B-trimethoprim (POLYTRIM) ophthalmic solution 01/21/20 21 Active rosuvastatin (CRESTOR) 10 mg tablet Take 1 tablet (10 mg total) by mouth nightly at bedtime 03/07/20 23 Active propranoloL (INDERAL) 10 mg tablet Take 1 tablet (10 mg total) by mouth every 12 (twelve) hours as needed 12/12/19 24 Active thyroid (ARMOUR THYROID) 60 mg tabletIndications: Acquired hypothyroidism TAKE 1 TABLET(60 MG) BY MOUTH DAILY 90 tablet 3 12/16/19 25 Active thyroid (PANTOGRAPH I ENGRAVER Thyroid) 60 mg tablet Take 1 tablet (60 mg total) by mouth daily 90 tablet 3 03/11/20 24 025 Discontinued Active Problems Problem Noted Date Diagnosed Date 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 Acquired hypothyroidism 05/27/2019 Assessment & Plan (03/11/2024 1:26 PM CDT): Chronic, stable Update TFTs Continue PANTOGRAPH I ENGRAVER Thyroid Assessment & Plan (03/13/2023 1:29 PM CDT): Update TFTs Continue [place] , at current dose Assessment & Plan (03/07/2022 1:25 PM CDT): Check TFT's Continue [place] Thyroid Will call with advise if any changes are indicated Assessment & Plan (03/08/2021 1:16 PM CDT): Check TFT's Continue [place] at current dose Rx sent Assessment & Plan (03/16/2020 1:30 PM CDT): Continue [place] Thyroid 60 mg daily Prescription for 90 days with 3 refills was sent Patient to call at any time with any concerns or symptoms Otherwise follow-up in a year Assessment & Plan (09/11/2019 1:37 PM FACILITIES TECHNICIAN): Check TFT's Will call with any changes. Assessment & Plan (05/27/2019 1:04 PM CDT): Your goal of treatment is to keep TSH , T3 and T4 within normal range. Options of treatment, include LT 4 ( levothyroxine ) ,combination LT 4 plus T3 ( Levothyroxine + Liothyronine ) and natural hormonal preparations, including [place], Westhroid, etc. Well conducted clinical studies have not shown any difference in outcomes, in terms of symptoms when comparing these different options. Some patients Taking one or other form of treatment still manifest a variety of symptoms, in spite of normal thyroid hormone levels. At an individual levels, some patient feel better with some specific preparation, including [place]. However, many symptoms persist in patient, regardless of the form of treatment. Adjustments can always make to the dosages and The kind of preparation to use, as long as thyroid levels are within within range. Bringing the thyroid levels to supraphysiologic doses ( above normal ) is strongly recommended against , due to the high risk of side effects, including cardiac dysrhythmias ( irregular heart beat ) and bone density loss . Take your thyroid medication on empty stomach, preferably in the morning, 1 hour apart from food and other medications. Due to the narrow therapeutic range of Levothyroxine ( small changes in dose make a big difference on thyroid medication blood levels ) , brand name is strongly recommended. The medication should be taken daily. If one or more pills are missing in a week, they can be taken all together at once, making sure at the end of the week, all 7 tabs have been taken. Will recheck thyroid function tests and will consider starting [place]. Social History Tobacco Use Types Packs/Day Years Used Date Smoking Tobacco: Former Smokeless Tobacco: Never Tobacco Cessation:Counseling Given: Not Answered Alcohol Use Standard Drinks/Week Comments Not Currently 0 (1 standard drink = 0.6 oz pur e alcohol) PHQ-2 Answer Date Recorded PHQ-2 Total Score (If total score is 3 or more points, staff should administer the PHQ-9) 0 03/13/2023 Personal Safety Answer Date Recorded Getting School Help Needed Not on file 12/22 Comments No Sex and Gender Information Value Date Recorded Sex Assigned at Not on file Legal Sex Female 10:34 AM CDT Gender Identity Not on file Sexual Orientation Not on file Last Filed Vital Signs Vital Sign Reading Time Taken Comments Blood Pressure 120/70 05/29/2024 12:59 PM CDT Pulse 78 05/29/2024 12:59 PM CDT Temperature - - Respiratory Rate 17 05/29/2024 12:59 PM CDT Oxygen Saturation 99% 05/29/2024 12:59 PM CDT Inhaled Oxygen Concentration - - Weight 94.4 kg (208 lb 3.2 oz) 05/29/2024 12:59 PM CDT Height 172.7 cm (5' 8 ) 05/29/2024 12:59 PM CDT Body Mass Index 31.66 05/29/2024 12:59 PM CDT Plan of Treatment Not on file Insurance MEDICARE MEDICARE [facility] MEDICARE SUPPLEMENT Member Subscriber Plan / Payer (Ef fective 2022-Present) Name:Maddi Mir Relation to Subscriber:Self Name:Maddi Mir Payer ID:[id number] Group ID:[id number] Type:COMMERCIAL Address: [address] [place] [id number] Care Teams Bank Note Designer Relationship Specialty Start Date End Date El Bertrand MD PCP - General Family Practice 04/30/19 [place] [id number] [address] Consulting Physician Endocrinology Diabetes & Metabolism 05/27/19
--- OUTSIDE RECORDS SUMMARY | 2024-12-16 12:06 | XMS_ITS | Clinical Summary ---
Author Organization [facility] Physician Office Building 1 Address [address] [place] [address] Care Team Providers Care Manager Procurement Name Role Phone El Bertrand MD Primary Care Provider Remy Henley MD Unavailable Allergies No known active allergies Medications vitamins A,C,G-gtjz-hocsww 7,160113-100 ikth-nc-kknt tablet,delayed release (DR/EC) Take by mouth 2 [...] 90 tablet 3 12/16/19 25 Active thyroid (PROTOTYPE CARPENTER Thyroid) 60 mg tablet Take 1 tablet [...] PM CDT): Chronic, stable Update TFTs Continue PROTOTYPE CARPENTER Thyroid Assessment & Plan (03/13/2023 1:29 PM CDT): Update TFTs Continue [place] , at current dose Assessment & Plan (03/07/2022 1:25 PM CDT): Check TFT's Continue [place] Thyroid Will call with advise if any changes are indicated Assessment & Plan (03/08/2021 1:16 PM CDT): Check TFT's Continue [place] at current dose Rx sent Assessment & Plan (03/16/2020 1:30 PM CDT): Continue [place] Thyroid 60 mg daily Prescription for 90 days with 3 refills was sent Patient to call at any time with any concerns or symptoms Otherwise follow-up in a year Assessment & Plan (09/11/2019 1:37 PM FORENSIC INVESTIGATOR): Check TFT's Will call with any changes. Assessment & Plan (05/27/2019 1:04 PM CDT): Your goal of treatment is to keep TSH , T3 and T4 within normal range. Options of treatment, include LT 4 ( levothyroxine ) ,combination LT 4 plus T3 ( Levothyroxine + Liothyronine ) and natural hormonal preparations, including Redmond, Westhroid, etc. Well conducted clinical studies have not shown any difference in outcomes, in terms of symptoms when comparing these different options. Some patients Taking one or other form of treatment still manifest a variety of symptoms, in spite of normal thyroid hormone levels. At an individual levels, some patient feel better with some specific preparation, including [place]. However, many symptoms persist in patient, regardless [...] thyroid function tests and will consider starting Red[place]. Medical History Medical History Date Comments Hypothyroidism Macular degeneration Family History Medical History Relation Name Comments Diabetes Child Diabetes Maternal Grandfather Hypertension Mother Cancer Sister Relation Name Status Comments Child Maternal Grandfather Mother Sister Social History Tobacco Use Types Packs/Day Years [...] on file Sexual Orientation Not on file Obstetrics History Last Filed Vital Signs Vital Sign Reading [...] 05/29/2024 12:59 PM CDT Plan of Treatment Health Maintenance Due Date Last Done Comments Hepatitis C Screening 1945 Osteoporosis Screening-Bone Density Scan 1945 DTaP/Tdap/Td Vaccine (1 - Tdap) 1956 Hepatitis B Screening 1963 Zoster Vaccine (1 of 2) 1995 Well Visit 65+ 2010 Pneumococcal vaccine 65+ (2 of 2 - PPSV23) 07/14/2020 07/14/2019 Depression Screening 03/13/2024 03/13/2023, 03/07/2022, 03/08/2021, Additional history exists Influenza Vaccine (#1) 2024 9, 08/11/2018, 07/24/2017, Additional history exists Fall Risk Assessment 05/29/2025 05/29/2024 Insurance [facility] MEDICARE SUPPLEMENT Care Teams Manager Procurement Relationship Specialty Start Date End Date El Bertrand MD PCP - General Family Practice 04/30/19 [place] [id number] [facility] [address] [place] [address] Consulting Physician Endocrinology Diabetes & Metabolism 05/27/19
[2024-12-16 19:17] LABS: Alanine Aminotransferase 24 U/L (6-35); Albumin Level 4.3 g/dL (3.5-5.1); Alkaline Phosphatase 70 U/L (38-126); Anion Gap 8 mmol/L (4-12); Aspartate Amino Transferase 63 U/L (14-36); Bilirubin,Total 0.6 mg/dL (0.2-1.3); Blood Urea Nitrogen 18 mg/dL (7-17); Calcium 8.9 mg/dL (8.4-10.2); Carbon Dioxide 29 mmol/L (22-30); Chloride 104 mmol/L (98-107); Estimated Glomerular Filt Rate > 60; Glucose 98 mg/dL (65-110); Potassium 4.8 mmol/L (3.4-5.0); Sodium 141 mmol/L (137-145)
[2024-12-16 22:13] LABS: Hemoglobin A1C 5.6 % (<5.7)
== END 2024-12-16 10:23 | disposition home or self-care (01) ==
PROVIDERS: PCP Family Medicine; Visit Provider Family Medicine
DX: R73.9 Hyperglycemia, unspecified (principal); I10 Essential (primary) hypertension
CPT/HCPCS: 36415; 80053; 83036

== ENCOUNTER 2025-07-07 09:23 | Outpatient (CLI) | payer MEDICARE, SELFPAY ==
--- OUTSIDE RECORDS SUMMARY | 2008-02-21 07:17 | XMS_ITS | Continuity of Care Document ---
Author Organization [facility] [place] Address [address] [place] [address] Phone Care Team Providers Care Supervisor Screen Making Name Role Phone Rivero OD, David Unavailable [...] Diagnoses Date Provider Providers Copied on Encounter [facility], [address] [place] [address] [address], [place], [place], [address], tel:[phone] [facility] No Information February-0 2-200 8 Rivero OD David. [address], [place], [place], [facility], [place]. tel:[phone] [facility], [address], [place], [place], [address], [place] tel:[phone] [facility] No Information Jul-2 3-200 7 Rivero OD David. [address], [place], [address], [place]. tel:[phone] [facility], [address] [place] [address] [address], [place], [place], [address], [place] tel:[phone] [facility] No Information Apr- 7-200 7 Rivero OD David. [address] , [address], [place], [address], [place]. tel:[phone] [facility], [address], [place], [place], [address], [place] tel:[phone] [facility] No Information February-1 5-200 7 Rivero OD David. [address] , [address], [place], [address], [place]. tel:[phone] [facility], [address], [place], [place], [address], [place] tel:[phone] [facility] No Information Jan-2 4-200 7 Rivero OD David. [address] [facility] , [address], [place], [facility], [place]. tel:[phone] [facility], [address], [place], [place], [address], [place] tel:[phone] [facility] No Information Jan-1 7-200 7 Rivero OD David. [address] , [address], [place], [address], [place]. tel:[phone] [facility], [address], [place], [place], [address], [place] tel:[phone] [facility] No Information Jan-1 3-200 [address] [place], [place], [place], [address], [place]. tel:[phone] Referring Provider: David Rivero OD A, [address], [place], [place], [facility]. tel:[phone] [facility], [address], [place], [place], [address], tel:[phone] [facility] No Information Mar-2 0-200 7 [facility] . [address] [facility], [place], [place], [address], . tel:[phone] Referring Provider: David Shukla, [address] [facility] [address] [address], [place], [facility]. tel:[phone] [facility], [address], [place], [place], [address], tel:[phone] [facility] No Information Mar-1 3-200 7 Rivero OD David. [address] [facility] , [address], [place], [facility], . tel:[phone] [facility], [address], [place], [place], [address], tel:[phone] [facility] No Information Feb-2 0-200 7 Rivero OD David. [facility] , [address], [place], [address], . tel:[phone] Family History Family Member Type Diagnosis Age At Onset No Information Payers Payer name Insurance type Covered green party ID Authoriza tion(s) No Information Social History [...]
--- OUTSIDE RECORDS SUMMARY | 2025-07-07 10:41 | XMS_ITS | Clinical Summary ---
Author Organization [facility] Physician Office Building 1 Address [address] [place] [address] Care Team Providers Care Insurance Coordinator Name Role Phone El Bertrand MD Primary Care Provider Remy Henley MD Unavailable Allergies No known active allergies Medications vitamins A,C,B-tcoc-iweqzd 7,160-113-100 zxdg-zn-xqsw tablet,delayed release (DR/EC) Take by mouth 2 (two) times a day Active ascorbic acid (VITAMIN C) 1,000 mg tablet Take 1 tablet (1,000 mg total) by mouth daily Active fish oil-dha-epa 1,200-144-216 mg capsule Take by mouth Active gluc perez/chondro perez A/vit C/Mn (GLUCOSAMINE 1500 COMPLEX ORAL) Take by mouth Ac tive biotin 10,000 mcg capsule Take by mouth Active calcium-magnesium- zinc 333-133-5 mg tablet Take 1 tablet by mouth daily Active ergocalciferol, vitamin D2, 50 mcg (2,000 unit) capsule Take by mouth Active polymyxin B-trimethoprim (POLYTRIM) ophthalmic solution 1 Active rosuvastatin (CRESTOR) 10 mg tablet Take 1 tablet (10 mg total) by mouth nightly at bedtime 3 Active propranoloL (INDERAL) 10 mg tablet Take 1 tablet (10 mg total) by mouth every 12 (twelve) hours as needed 4 Active thyroid (ARMOUR THYROID) 60 mg tabletIndications: Acquired hypothyroidism TAKE 1 TABLET(60 MG) BY MOUTH DAILY 90 tablet 3 5 Active Eliquis 5 mg tablet Take 1 tablet (5 mg total) by mouth 2 (two) times a day 4 Active ipratropium (ATROVENT) 42 mcg (0.06 %) nasal spray Administer 2 sprays into each nostril 3 (three) times a day 5 Active metoprolol tartrate (LOPRESSOR) 50 mg immediate release tablet Take 1 tablet (50 mg total) by mouth every 12 (twelve) hours 5 Active Active Problems Problem Noted Date Diagnosed Date 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 Assessment & Plan (03/13/2023 1:29 PM CDT): Update TFTs Continue [place] , at current dose Assessment & Plan (03/07/2022 1:25 PM CDT): Check TFT's Continue Sellers Thyroid Will call with advise if any changes are indicated Assessment & Plan (03/08/2021 1:16 PM CDT): Check TFT's Continue Sellers at current dose Rx sent Assessment & Plan (03/16/2020 1:30 PM CDT): Continue Sellers Thyroid 60 mg daily Prescription for 90 days with 3 refills was sent Patient to call at any time with any concerns or symptoms Otherwise follow-up in a year Assessment & Plan (09/11/2019 1:37 PM ENGINEERING LIBRARIAN): Check TFT's Will call with any changes. Assessment & Plan (05/27/2019 1:04 PM CDT): Your goal of treatment is to keep TSH , T3 and T4 within normal range. Options of treatment, include LT 4 ( levothyroxine ) ,combination LT 4 plus T3 ( Levothyroxine + Liothyronine ) and natural hormonal preparations, including Sellers, Westhroid, etc. Well conducted clinical studies have not shown any difference in outcomes, in terms of symptoms when comparing these different options. Some patients Taking one or other form of treatment still manifest a variety of symptoms, in spite of normal thyroid hormone levels. At an individual levels, some patient feel better with some specific preparation, including Sellers. However, many symptoms persist in patient, regardless [...] thyroid function tests and will consider starting Sellers. Medical History Medical History Date Comments Hypothyroidism [...] staff should administer the PHQ-9) 0 03/13/2023 Comments No Sex and Gender Information Value Date Recorded Sex Assigned at Not on file Legal Sex Female 10:34 AM CDT Gender Identity Not on file Sexual Orientation Not on file Obstetrics History Last Filed Vital Signs Vital Sign Reading Time Taken Comments Blood Pressure 100/60 03/25/2025 1:20 PM CDT Pulse 92 03/25/2025 1:20 PM CDT Temperature - - Respiratory Rate 17 03/25/2025 1:20 PM CDT Oxygen Saturation 98% 03/25/2025 10:09 AM CDT Inhaled Oxygen Concentration - - Weight 92 kg (202 lb 12.8 oz) 03/25/2025 1:20 PM CDT Height 175.3 cm (5' 9) 03/25/2025 1:20 PM CDT Body Mass Index 29.95 03/25/2025 1:20 PM CDT Plan of Treatment Health Maintenance Due Date Last Done Comments Hepatitis C Screening 1945 Osteoporosis Screening-Bone Density Scan 1945 DTaP/Tdap/Td Vaccine (1 - Tdap) 1956 Hepatitis B Screening 1963 Zoster Vaccine (1 of 2) 1995 Well Visit 65+ 2010 Pneumococcal vaccine 65+ (2 of 2 - PCV20 or PCV21) 07/14/2020 07/14/2019 Depression Screening 03/13/2024 03/13/2023, 03/07/2022, 03/08/2021, Additional history exists Fall Risk Assessment 05/29/2025 05/29/2024 Influenza Vaccine (#1) 2025 9, 08/11/2018, 07/24/2017, Additional history exists Insurance MEDICARE MEDICARE [facility] MEDICARE SUPPLEMENT Care Teams Insurance Coordinator Relationship Specialty Start Date End Date El Bertrand MD PCP - General Family Practice 04/30/19 [place] [id number] [facility] [address] [place] [address] Consulting Physician Endocrinology Diabetes & Metabolism 05/27/19
[2025-07-07 19:34] LABS: Hematocrit 43.9 % (37.0-47.0); Hemoglobin 14.1 g/dL (12.0-15.0); Immature Granulocyte Percent A 0.1 % (0-0.5); Lymphocytes Absolute Auto 2.55 K/mm3 (0.9-3.2); Mean Corpuscular HGB Conc 32.1 g/dl (32-36); Mean Corpuscular Hemoglobin 29.9 pg (26-34); Mean Corpuscular Volume 93.2 fl (80-100); Nucleated Red Blood Cells Absolute Auto 0.000 K/mm3 (0.0-0.012); Nucleated Red Blood Cells Perc 0.0 % (0.0-0.2); Platelet Count Result 216 k/mm3 (150-375); Red Blood Count 4.71 M/mm3 (4.2-5.4); White Blood Count 7.1 K/mm3 (4.5-10.0)
[2025-07-07 19:44] LABS: Alanine Aminotransferase 21 U/L (6-35); Albumin Level 4.2 g/dL (3.5-5.1); Alkaline Phosphatase 72 U/L (38-126); Anion Gap 8 mmol/L (4-12); Aspartate Amino Transferase 39 U/L (14-36); Bilirubin,Total 0.7 mg/dL (0.2-1.3); Blood Urea Nitrogen 17 mg/dL (7-17); Calcium 8.9 mg/dL (8.4-10.2); Carbon Dioxide 25 mmol/L (22-30); Chloride 106 mmol/L (98-107); Cholesterol 137 mg/dL (0-200); Estimated Glomerular Filt Rate > 60; Glucose 76 mg/dL (65-110); HDL Direct 50 mg/dL; Potassium 4.4 mmol/L (3.4-5.0); Sodium 139 mmol/L (137-145); Total Protein 7.3 g/dL (6.3-8.2); Triglycerides 77 mg/dL (<150)
[2025-07-07 20:19] LABS: Hemoglobin A1C 5.7 % (<5.7)
[2025-07-07 21:09] LABS: Vitamin B12 314.0 pg/mL (239-931)
== END 2025-07-07 09:24 | disposition home or self-care (01) ==
LOC: ANHGOSHLAB 09:24
PROVIDERS: PCP Family Medicine; Visit Provider Family Medicine
DX: E53.8 Deficiency of other specified B group vitamins (principal); I10 Essential (primary) hypertension; Z00.00 Encounter for general adult medical examination without abnormal findings; R73.9 Hyperglycemia, unspecified; E03.9 Hypothyroidism, unspecified; E55.9 Vitamin D deficiency, unspecified; E78.5 Hyperlipidemia, unspecified
CPT/HCPCS: 36415; 80053; 80061; 82306; 82607; 83036; 85025

== ENCOUNTER 2025-08-05 07:36 | Outpatient (CLI) | payer MEDICARE, SELFPAY ==
--- OUTSIDE RECORDS SUMMARY | 2008-02-21 07:17 | XMS_ITS | Continuity of Care Document ---
Author Organization [facility] [place] Address [address] [place] [address] Phone Care Team Providers Care Ice Handler Name Role Phone Rivero OD, David Unavailable Unavailable Procedures Procedure Date Post-op Follow-up Visit Post-op Follow-up Visit Post-op Follow-up Visit Post-op Follow-up Visit Post-op Follow-up Visit Post-op Follow-up Visit PRK Corneal Topography Refractive Evaluation Eye Exam & Treatment Advance Directives Directive Yes / No Effective Date File Name No Information Encounters Encounter Description Practice Location Reason(s) For Visit Diagnoses Date Provider Providers Copied on Encounter [facility], [address] [place] [address] [address], [place], [place], [address], tel:[phone] [facility] No Information February-0 2-200 8 Rivero OD David. [address] , [address], [place], [place], [facility], [place]. tel:[phone] [facility], [address], [place], [place], [address], [place] tel:[phone] [facility] No Information Jul-2 3-200 7 Rivero OD David. [address], [place], [address], [place]. tel:[phone] [facility], [address] [place] [address] [address], [place], [place], [address], [place] tel:[phone] [facility] No Information Apr- 7-200 7 Rivero OD David. [address] , [address], [place], [address], [place]. tel:[phone] [facility], [address], [place], [place], [address], [place] tel:[phone] [facility] No Information February-1 5-200 7 Rivero OD David. [address] , [address], [place], [address], [place]. tel:[phone] [facility], [address], [place], [place], [address], [place] tel:[phone] [facility] No Information Jan-2 4-200 7 Rivero OD David. [address] [facility] , [address], [place], [place], [facility], [place]. tel:[phone] [facility], [address], [place], [place], [address], [place] tel:[phone] [facility] No Information Jan-1 7-200 7 Rivero OD David. [address] , [address], [place], [address], [place]. tel:[phone] [facility], [address], [place], [place], [address], [place] tel:[phone] [facility] No Information Jan-1 3-[address] [place], [address], [place], [place], [address], [place]. tel:[phone] Referring Provider: David Rivero OD A, [address], [place], [place], [facility]. tel:[phone] [facility], [address], [place], [place], [address], tel:[phone] [facility] No Information Mar-2 0-200 7 [facility] . [address] [facility], [place], [place], [address], . tel:[phone] Referring Provider: David Shukla, [address] [facility] [address], [place], [place], [facility]. tel:[phone] [facility], [address], [place], [place], [address], tel:[phone] [facility] No Information Mar-1 3-200 7 Rivero OD David. [address] [facility] , [address], [place], [place], [facility], . tel:[phone] [facility], [address] [facility], [place], [place], [address], tel:[phone] [facility] No Information Feb-2 0-200 7 Rivero OD David. [facility] [address] , [address], [place], [address], . tel:[phone] Family History Family Member Type Diagnosis Age At Onset No Information Payers Payer name Insurance type Covered democrat ID Authoriza tion(s) No Information Social History Type Description Quantity Date Captured Comments Sex Female Smoking Status No Information Chief Complaint And Reason For Visit No Information Reason For Referral Reason For Referral No Information History Of Present Illness Encounter Date Complaint History Of Prese nt Illness No Information Functional Status Date Functional Assessmen t No Information Instructions Date Instruction Additional Infor mation No Information Assessments Type Assessment Date No Information Patient Care Teams Name Effective Dates (start - stop) Status Members No Information
--- NOTE | ~2025-08-05 | NM_ITS ---
EXAMINATION: NM pedro stress w perfusion DATE: 08/05/2025 09:54 INDICATION: Paroxysmal atrial fibrillation. TECHNIQUE: Rest images were obtained following intravenous administration of 11.2 mCi Tc99m tetrofosmin (Myoview). The patient was infused intravenously with Lexiscan (regadenoson). Then, 34.6 mCi Tc99m tetrofosmin (Myoview) was administered intravenously, and stress images were obtained. Data was estefani nstructed into short axis and horizontal and vertical long axis SPECT images. Gated SPECT images were also obtained. COMPARISON: None. FINDINGS: There is no definite reversible or fixed perfusion abnormality to suggest ischemia or infarction. There is no segmental wall motion abnormality. Left ventricular ejection fraction measures > 70%. IMPRESSION: 1. No definite ischemia or infarct. 2. Normal left ventricular ejection fraction measuring >70%. Reviewed, dictated and finalized at location E.
--- NOTE | 2025-08-05 08:22 | EST_ITS ---
Patient Info Name: Maddi Waller Age: 79 years : 1945 Gender: Female Ht: 69 in Wt: 200 lbs BSA: 2.12 m2 HR: 76 bpm BP: 116 / 89 mmHg Exam Date: 08/05/2025 8:22 AM Patient Status: O Admit Date: 08/05/2025 Exam Type: CA stress pedro w NM A regadenoson stress test was performed. Staff Referring Physician: Colin Mendosa DO Attending Provider: Colin Mendosa DO Exercise Technologist: Viky Little Exercise Physician: Colin Mendosa DO Summary 1. 1. Negative lexiscan stress test for ischemic ST changes by ECG criteria. 2. 2. Stable hemodynamics throughout the test. 3. 3. Nuclear scan to follow and will be reported separately. Please correlate with it. 4. 4. Patient informed of the above results. Protocol: Lexiscan Stress ECG Details Stage: REST Duration (min): 1 min : 14 sec HR (bpm): 80 SBP (mmHg): 116 DBP (mmHg): 89 Stage: REST Duration (min): 14 min : 44 sec HR (bpm): 90 SBP (mmHg): 116 DBP (mmHg): 89 Stage: STAGE 1 Duration (min): 1 min : 0 sec HR (bpm): 100 SBP (mmHg): 121 DBP (mmHg): 89 Stage: RECOVERY Duration (min): 1 min : 0 sec HR (bpm): 101 SBP (mmHg): 121 DBP (mmHg): 89 Stage: RECOVERY Duration (min): 2 min : 0 sec HR (bpm): 93 SBP (mmHg): 121 DBP (mmHg): 89 Stage: RECOVERY Duration (min): 3 min : 0 sec HR (bpm): 92 SBP (mmHg): 119 DBP (mmHg): 81 Stage: RECOVERY Duration (min): 4 min : 0 sec HR (bpm): 96 SBP (mmHg): 119 DBP (mmHg): 81 Stage: RECOVERY Duration (min): 5 min : 0 sec HR (bpm): 90 SBP (mmHg): 109 DBP (mmHg): 74 Stage: RECOVERY Duration (min): 5 min : 6 sec HR (bpm): 91 SBP (mmHg): 109 DBP (mmHg): 74 Rest HR: 90 bpm Peak HR: 108 bpm Rest Sys BP: 116 mmHg Peak Sys BP: 121 mmHg Max Pred HR: 141 bpm % Max Pred HR: 77 % Target HR: 120 bpm Max RPP: 13,068 bpm*mmHg Termination Reason: Completed protocol Cardiac Symptoms: Shortness of breath Total Time: 1 min : 0 sec Rest Rucker BP: 89 mmHg Peak Rucker BP: 89 mmHg Total Dose: 0.4 mg Resting ECG Atrial fibrillation. Stress ECG No ST changes. Arrhythmias None. Report Signatures
== END 2025-08-05 07:37 | disposition home or self-care (01) ==
PROVIDERS: PCP Family Medicine; Visit Provider Internal Medicine Cardiovascular Disease
DX: I48.0 Paroxysmal atrial fibrillation (principal)
CPT/HCPCS: 78452; 93017; A9502; J2785

== ENCOUNTER 2025-09-11 02:11 | Day surgery (SDC) | payer MEDICARE, SELFPAY ==
[2025-09-10 10:37] VITALS: BMI 29.5
--- OUTSIDE RECORDS SUMMARY | 2025-09-11 02:16 | XMS_ITS | Clinical Summary ---
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 Assessment & Plan (03/13/2023 1:29 PM CDT): Update TFTs Continue Hendrix , at current dose Assessment & Plan (03/07/2022 1:25 PM CDT): Check TFT's Continue Hendrix Thyroid Will call with advise if any changes are indicated Assessment & Plan (03/08/2021 1:16 PM CDT): Check TFT's Continue Hendrix at current dose Rx sent Assessment & Plan (03/16/2020 1:30 PM CDT): Continue Hendrix Thyroid 60 mg daily Prescription for 90 days with 3 refills was sent Patient to call at any time with any concerns or symptoms Otherwise follow-up in a year Assessment & Plan (09/11/2019 1:37 PM FOOD AND NUTRITION SERVICES SUPERVISOR): Check TFT's Will call with any changes. Assessment & Plan (05/27/2019 1:04 PM CDT): Your goal of treatment is to keep TSH , T3 and T4 within normal range. Options of treatment, include LT 4 ( levothyroxine ) ,combination LT 4 plus T3 ( Levothyroxine + Liothyronine ) and natural hormonal preparations, including Hendrix, Westhroid, etc. Well conducted clinical studies have not shown any difference in outcomes, in terms of symptoms when comparing these different options. Some patients Taking one or other form of treatment still manifest a variety of symptoms, in spite of normal thyroid hormone levels. At an individual levels, some patient feel better with some specific preparation, including Hendrix. However, many symptoms persist in patient, regardless [...] thyroid function tests and will consider starting Hendrix. Medical History Medical History Date Comments Hypothyroidism [...] 07/24/2017, Additional history exists Insurance MEDICARE MEDICARE [facility] MEDICARE SUPPLEMENT Care Teams Food Service Representative Relationship Specialty Start Date End Date El Bertrand MD PCP - General Family Practice 04/30/19 [place] [id number] [facility] [address] [place] [address] Consulting Physician Endocrinology Diabetes & Metabolism 05/27/19
--- NOTE | 2025-09-11 12:30 | ECG_ITS ---
Test Date: 2025-09-11 12:38:16 Measurements Intervals [place] Rate: 88 P: 0 [place]: 0 QRS: 5 QRSD: 89 T: -22 QT: 360 QTc: 436 Interpretive Statements ATRIAL FIBRILLATION ABNORMAL RHYTHM ECG Compared to ECG 07/14/2024 15:42:29 No significant changes Electronically Signed On 09-11-2025 19:04:39 WINDER HAND by Carolina Chavez M.D.
[2025-09-11 12:40] VITALS: BP 138/95; PULSE 85; RESP 16; TEMP 36.4; O2SAT 95; BMI 29.7
[2025-09-11 13:07] LABS: Anion Gap 10 mmol/L (4-12); Blood Urea Nitrogen 19 mg/dL (7-17); Calcium 8.6 mg/dL (8.4-10.2); Carbon Dioxide 22 mmol/L (22-30); Chloride 107 mmol/L (98-107); Estimated CRCL calculation 54 ml/min; Estimated Glomerular Filt Rate 60; Glucose 89 mg/dL (65-110); Magnesium 2.2 mg/dL (1.6-2.3); Potassium 4.7 mmol/L (3.4-5.0); Sodium 139 mmol/L (137-145)
--- NOTE | 2025-09-11 14:00 | ECG_ITS ---
Test Date: 2025-09-11 14:13:14 Measurements Intervals [place] Rate: 66 P: 71 SD: 247 QRS: -1 QRSD: 94 T: -18 QT: 411 QTc: 433 Interpretive Statements SINUS RHYTHM WITH FIRST DEGREE AV BLOCK Compared to ECG 09/11/2025 12:38:16 First degree AV block now present Atrial fibrillation no longer present Electronically Signed On 09-11-2025 19:07:11 TECHNICAL SUPPORT ENGINEER by Carolina Chavez M.D.
--- NOTE | 2025-09-11 14:00 | ECHO_ITS ---
Patient Info Name: Maddi Waller Age: 79 years : 1945 Gender: Female Ht: 69 in Wt: 200 lbs BSA: 2.12 m2 HR: 85 bpm BP: 138 / 95 mmHg Heart Rhythm: Atrial Fibrillation Technical Quality: Good Exam Date: 09/11/2025 1:57 PM Patient Status: O Admit Date: 09/11/2025 Exam Type: CA echo transesophageal Complete two-dimensional, color flow and Doppler transesophageal study is performed. Keyboard Instrument Repairer: Cruzito Acevedo III Attending Provider: Colin Mendosa DO Summary 1. Left ventricular chamber dimension is normal. 2. Left ventricular systolic function is normal with an ejection fraction of 60-65% by visual estimation. 3. The left ventricular diastolic function is indeterminate as it was not assessed. 4. Left atrial chamber dimension is moderately enlarged. 5. There is mild mitral valve regurgitation. 6. There is mild tricuspid valve regurgitation. Procedure Details Risks/benefits/alternative to WENDIE discuss with patient and she gave informed consent. She was monitored electrocardiographically, vitals and pulse ox. She is in atrial fibrillation at 100 bpm, BP 130/70 mmHg, pulse ox 100%. Cetacaine spray x 1 to posterior oropharynx. Sedation provided by anesthesiology. WENDIE probe advanced without incident. Multiple images obtained. WENDIE probe withdrawn and no blood noted on WENDIE probe tip. Patient tolerated procedure well with no immediate complications. Left Ventricle Left ventricular chamber dimension is normal. Left ventricular systolic function is normal with an ejection fraction of 60-65% by visual estimation. The left ventricular diastolic function is indeterminate as it was not assessed. Right Ventricle Right ventricular chamber dimension is normal. Right ventricular systolic function is normal. Left Atria Left atrial chamber dimension is moderately enlarged. Right Atria Right atrial chamber dimension is normal. Atrial Septum Intact interatrial septum visualized by 2D and color flow imaging. Atrial Appendage There is no thrombus visualized in the left atrial appendage. Aortic Valve The aortic valve is trileaflet. There is no aortic valve stenosis. There is no aortic valve regurgitation. Pulmonic Valve There is no pulmonic regurgitation. Mitral Valve There is no mitral valve stenosis. There is mild mitral valve regurgitation. Tricuspid Valve There is mild tricuspid valve regurgitation. RVSP was not measured. Pericardium/Pleural There is no pericardial effusion. Inferior Vena Cava Inferior vena cava is not well visualized. Aorta The aortic root size at the sinus of Valsalva is normal. Report Signatures
[2025-09-11 14:25] VITALS: BP 119/72; PULSE 63; RESP 23; O2SAT 99
--- NOTE | 2025-09-11 14:29 | WPDCARDVER ---
Cardioversion Cardioversion Date of procedure: 09/11/25 Pre-op diagnosis: atrial fibrillation Post-op diagnosis: Same Indications: Symptomatic atrial fibrillation Description of procedure: Risks/benefits/alternative to DC cardioversion discuss with patient and she gave informed consent. A WENDIE just performed showed no left atrial or left atrial appendage thrombus. Patient monitored electrocardiographically, vitals, pulse ox, and shows atrial fibrillation at 100 bpm, BP 130/70 mmHg, pulse ox 100%. Sedation provided by anesthesiology. Defibrillator pads placed on anterior and posterio chest. Parameters set at 200 J synchronized biphasic energy and 1 shocked delivered which converted patient to sinus rhythm at 60 bpm. Patient tolerated procedure well with no immediate complications. Sedation: Provided by anesthesiology service Conclusion: 1. Successful DC cardioversion from atrial fibrillation to sinus rhythm. [facility] [place]ioversion: Cardioversion
[2025-09-11 14:40] VITALS: BP 125/75; PULSE 52; RESP 19; O2SAT 98
[2025-09-11 14:55] VITALS: BP 113/68; PULSE 52; RESP 12; O2SAT 100
[2025-09-11 15:10] VITALS: BP 123/78; PULSE 54; RESP 13; O2SAT 97
[2025-09-11 15:25] VITALS: BP 126/65; PULSE 56; RESP 18; O2SAT 95
== END 2025-09-11 15:49 | disposition home or self-care (01) ==
PROVIDERS: PCP Family Medicine; Visit Provider Internal Medicine Cardiovascular Disease
PROC: (CPT 93312; principal; 2025-09-11 14:00)
PROC: 5A2204Z Restoration of Cardiac Rhythm, Single (ICD-10-PCS; 2025-09-11 14:00)
DX: I48.91 Unspecified atrial fibrillation (principal); I08.1 Rheumatic disorders of both mitral and tricuspid valves; I44.0 Atrioventricular block, first degree; I10 Essential (primary) hypertension; E78.5 Hyperlipidemia, unspecified; E03.9 Hypothyroidism, unspecified; M85.88 Other specified disorders of bone density and structure, other site; G89.29 Other chronic pain; M54.2 Cervicalgia; G60.9 Hereditary and idiopathic neuropathy, unspecified; Z79.01 Long term (current) use of anticoagulants; Z98.890 Other specified postprocedural states; Z87.891 Personal history of nicotine dependence; Z80.0 Family history of malignant neoplasm of digestive organs
CPT/HCPCS: 36415; 80048; 83735; 92960; 93312; 93320; 93325; J2704; J7040

== ENCOUNTER 2025-09-16 01:15 | Emergency (ER) | payer MEDICARE, SELFPAY ==
[2025-09-16] VITALS (7 sets, daily range): BP systolic 126–140; BP diastolic 82–106; PULSE 84–122; RESP 17–22; TEMP 36.3; O2SAT 94–97
--- NOTE | ~2025-09-16 | XR_ITS ---
EXAMINATION: XR chest 1V portable 09/16/2025 02:02 INDICATION: A. Fib PROCEDURE: AP portable chest COMPARISON: 07/14/2024 FINDINGS: The lungs are clear. The cardiomediastinal silhouette is within normal limits. There are no pleural effusions. There is no pneumothorax suspected. IMPRESSION: 1: NO ACUTE CARDIOPULMONARY DISEASE. Reviewed, dictated and finalized at location [facility]
--- NOTE | 2025-09-16 01:24 | ECG_ITS ---
Test Date: 2025-09-16 01:27:56 Measurements Intervals Buckner Rate: 78 P: 0 NM: 0 QRS: -24 QRSD: 82 T: -45 QT: 377 QTc: 431 Interpretive Statements ATRIAL FIBRILLATION BORDERLINE LEFT AXIS DEVIATION [QRS AXIS < -20] LOW QRS VOLTAGE IN PRECORDIAL LEADS [QRS DEFLECTION < 1.0 mV IN CHEST LEADS] NONSPECIFIC ST AND T-WAVE ABNORMALITY ABNORMAL ELECTROCARDIOGRAM Compared to ECG 09/11/2025 14:13:14 ATRIAL FIBRILLATION REPLACES SINUS RHYTHM Electronically Signed On 09-16-2025 07:37:23 TAX EXPERT by Joe Schwartz M.D.
--- NOTE | 2025-09-16 01:32 | ECG_ITS ---
Test Date: 2025-09-16 01:35:12 Measurements Intervals Mallory Rate: 79 P: 0 OR: 0 QRS: -21 QRSD: 91 T: -44 QT: 380 QTc: 438 Interpretive Statements ATRIAL FIBRILLATION BORDERLINE LEFT AXIS DEVIATION [QRS AXIS < -20] LOW QRS VOLTAGE IN PRECORDIAL LEADS [QRS DEFLECTION < 1.0 mV IN CHEST LEADS] MODERATE T-WAVE ABNORMALITY, CONSIDER ANTERIOR ISCHEMIA [-0.1+ mV T-WAVE IN V3/V4] ABNORMAL ECG Compared to ECG 09/16/2025 01:27:56 NO DIFFERENCE Electronically Signed On 09-16-2025 07:38:01 SEWING SUPERVISOR by Joe Schwartz M.D.
--- NOTE | 2025-09-16 01:52 | ED_ITS ---
HPI - Arrhythmia/Palpitations General Chief Complaint: Arrhythmia/Palpitations Stated Complaint: RAPID AFIB, LIGHTHEADEDNESS, RECENT CARDIOVERSION Time Seen by Provider: 09/16/25 01:30 History of Present Illness HPI narrative: 79-year-old female with history of paroxysmal AFib, hypertension, hyperlipidemia, hypothyroidism. Patient presents to the emergency department today after feeling like her heart was elevated and racing at home. She had a successful cardioversion under anesthesia with transesophageal echo with her labor standards director Dr. Mendosa on the . At that time patient was instructed to lower her metoprolol dose from 50 b.i.d. to 25 b.i.d. and continue her Eliquis and flecainide. She has been compliant with his regimen but today she knows that her heart rate was back to being in AFib/flutter and she was feeling symptomatic with exertional dyspnea. No chest pain. Tonight when she would to go the bathroom the night she felt like her heart was elevated in the 140s and called an ambulance for assistance. No chest pain shortness a breath at rest. No nausea, vomiting, fever, chills. Has not missed a medication dosages. Was otherwise in her normal state of health and felt significant improvement after the cardioversion but now feels back to her baseline AFib status. Related Data Home Medications ?Medication ?Instructions ?Recorded ?Confirmed ?Last Taken ?Type thyroid (pork) 60 mg tablet 60 mg PO DAILY 12/27/2009/10/25 History cholecalciferol (vitamin D3) 50 50 mcg PO DAILY 09/10/25 09/10/25 History mcg (2,000 unit) capsule ascorbic acid (vitamin C) 1,000 mg 1 g PO DAILY 09/10/25 09/10/25 History capsule sobonuq-mojvnijxu-ivrt tablet 1 tablet PO DAILY 09/10/25 09/10/25 History vitamins A,C,K-hhxu-qrsdnk 4,296 1 cap PO BID 06/07/22 09/10/25 09/10/25 History mcg-226 mg-90 mg capsule (PreserVision AREDS) glucosamine HCl 500 mg tablet 500 mg PO DAILY 07/25/24 09/10/25 09/10/25 History omega 4-orj-jhd-fish oil 1,200 mg 1 cap PO DAILY 07/0709/10/25 09/10/25 History (144 mg-216 mg) capsule (Fish Oil) Allergies Allergy/AdvReac Type Severity Reaction Status Date / Time No Known Allergies Allergy Verified 09/10/25 10:34 Review of Systems 2 Review of Systems: As reviewed above in HPI All systems reviewed & are unremarkable except as noted in HPI and below PMFSH Past Medical History Medical History Vasomotor rhinitis Peripheral neuropathy, idiopathic Family hx of colon cancer Paroxysmal A-fib (~06/2024) Macular degeneration of both eyes Chronic neck pain Essential (primary) hypertension Osteopenia Dyslipidemia Hypothyroidism (acquired) Surgical History Surgical History History of bilateral cataract extraction (02/2021) Family History Family History Other Diabetes mellitus Social History Social History Social History: Surrogate medical decision maker: Leticia Mir, sibling. Code status: Full code. Years smoked: 20 Smoking status: Never smoker Second hand tobacco smoke exposure: No Smoking end date: 10/22/03 Alcohol intake: former Alcohol use details: occasional Substance use: never Substance use type: does not use Lack of Transportation: No Lack of Food: Never True Current Housing: I Have Housing Concerned About Future Housing: No Difficulty Paying Gas/Electric Bills: No Difficulty Paying for Meds: No Currently Unemployed: No Education: High School Diploma/GED Difficulty w/ Childcare or Family Care: No Living arrangements: alone Occupation/Education: retired Spiritual care concerns: No Exam 2 Narrative: GENERAL: [Well-appearing, well-nourished, and in no acute distress.] HEAD: [Normocephalic, atraumatic.] EYES: [PERRLA and EOMI.] ENT: Nares clear, no rhinorrhea or epistaxis. Mucous membranes moist. NECK: Supple. CHEST: [Clear to auscultation. No respiratory distress.] HEART: Irregular rate and rhythm, no murmurs, strong symmetric pulses. Warm extremities. ABDOMEN: [Soft, nondistended], [nontender], [No rigidity or guarding] EXTREMITIES: Normal range of motion. [No edema.] SKIN: Warm, dry, no rash. NEURO: [No focal deficits]. Alert and oriented [x3.] PSYCH: [Normal mood and affect.] Course Vital Signs Vital signs: Vital Signs Temperature 36.3 C L 09/16/25 01:16 Pulse Rate 85 09/16/25 01:16 Respiratory Rate 22 H 09/16/25 01:16 Blood Pressure 140/106 H 09/16/25 01:16 Pulse Oximetry 97 09/16/25 01:16 Oxygen Delivery Room Air 09/16/25 01:16 Temperature 36.3 C L 09/16/25 01:16 Pulse Rate 87 09/16/25 05:30 Respiratory Rate 17 09/16/25 05:30 Blood Pressure 137/93 H 09/16/25 05:30 Pulse Oximetry 95 09/16/25 05:30 Oxygen Delivery Room Air 09/16/25 01:16 MDM - Arrhythmia/Palpitations MDM Narrative Medical decision making narrative: 79-year-old female with history of paroxysmal AFib, hypertension, hyperlipidemia, hypothyroidism. Patient presents to the emergency department today after feeling like her heart was elevated and racing at home. She had a successful cardioversion under anesthesia with transesophageal echo with her labor standards director Dr. Mendosa on the . At that time patient was instructed to lower her metoprolol dose from 50 b.i.d. to 25 b.i.d. and continue her Eliquis and flecainide. She has been compliant with his regimen but today she knows that her heart rate was back to being in AFib/flutter and she was feeling symptomatic with exertional dyspnea. No chest pain. Tonight when she would to go the bathroom the night she felt like her heart was elevated in the 140s and called an ambulance for assistance. No chest pain shortness a breath at rest. No nausea, vomiting, fever, chills. Has not missed a medication dosages. Was otherwise in her normal state of health and felt significant improvement after the cardioversion but now feels back to her baseline AFib status. Patient appears to be in AFib/flutter on the monitor confirmed on EKG appears to be a flutter with variable conduction. Rate is controlled currently 85. Mild tachypnea. No hypoxia. Normal blood pressure. Suspect symptoms secondary to failed cardioversion and now back to her AFib. Cardiac workup and electrolyte panel ordered. EKG and chest x-ray ordered. Patient is not having any symptoms at rest. Placed on cardiac cath lab radiology technologist and re-evaluated. Laboratory studies showed negative troponin x2, normal electrolytes. Normal magnesium and potassium. Normal LFTs and kidney function. No leukocytosis or anemia. Spoke to patient's labor standards director Dr. Mendosa who recommended doubling her flecainide dose and keeping her half dose of metoprolol and he will see her in clinic. These changes were made and relayed to the patient. She remains asymptomatic on repeat evaluations with normal vital signs and unremarkable workup thus far. Safe for discharge with Cardiology follow-up and review their recommendations. Medical Records Attestation: I reviewed the patient's medical records. Lab Data Attestation: I reviewed the patient's lab results. 09/16/25 01:39 09/16/25 01:39 Labs: Lab Results 09/16/25 09/16/25 Range/Units 01:39 04:16 WBC 5.6 (4.5-10.0) K/mm3 RBC 4.54 (4.2-5.4) M/mm3 Hgb 13.6 (12.0-15.0) g/dL Hct 41.5 (37.0-47.0) % MCV 91.4 (80-100) fl MCH 30.0 (26-34) pg MCHC 32.8 (32-36) g/dl RDW 14.6 H (11.5-14.5) % Plt Count 176 (150-375) k/mm3 MPV 10.8 H (7.4-10.4) fl Immature Gran % (Auto) 0.2 (0-0.5) % Neut % (Auto) 37.8 L (45.5-73.1) % Lymph % (Auto) 48.0 H (18.3-44.2) % Young % (Auto) 11.4 H (2.6-8.5) % Eos % (Auto) 2.1 (0-4.4) % Baso % (Auto) 0.5 (0.2-1.2) % Lymph # (Auto) 2.69 (0.9-3.2) K/mm3 Young # (Auto) 0.6 (0.1-0.6) K/mm3 Eos # (Auto) 0.1 (0-0.3) K/mm3 Baso # (Auto) 0.0 (0.0-0.1) K/mm3 Abs Immat Gran (auto) 0.01 (0.00-0.031) K/mm3 Absolute Neuts (auto) 2.1 (1.3-6.7) K/mm3 Absolute Nucleated RBC 0.000 (0.0-0.012) K/mm3 Nucleated RBC % 0.0 (0.0-0.2) % PT 17.1 H (11.1-14.7) Seconds INR 1.4 APTT 33.8 (22.3-36.8) Seconds Sodium 140 (137-145) mmol/L Potassium 4.0 (3.4-5.0) mmol/L Chloride 106 (98-107) mmol/L Carbon Dioxide 27 (22-30) mmol/L Anion Gap 7 (4-12) mmol/L BUN 17 (7-17) mg/dL Creatinine 0.83 (0.7-1.0) mg/dL Estim Creat Clear Calc 59 ml/min Estimated GFR > 60 (59 - ) Glucose 106 (65-110) mg/dL Calcium 9.0 (8.4-10.2) mg/dL Magnesium 2.1 (1.6-2.3) mg/dL Total Bilirubin 0.6 (0.2-1.3) mg/dL AST 24 (14-36) U/L ALT 17 (6-35) U/L Alkaline Phosphatase 68 (38-126) U/L Troponin I < 0.012 < 0.012 (0.000-0.034) ng/mL Total Protein 7.0 (6.3-8.2) g/dL Albumin 4.0 (3.5-5.1) g/dL Lipase 128 (23-300) U/L Imaging Data Attestation: I personally reviewed and interpreted this imaging study as follows: My impression: No pneumothorax or obvious consolidation Discharge Plan Discharge Clinical Impression: A-fib Patient Disposition: Home Condition: Stable Instructions: Antibiotic Form, A-fib (Atrial Fibrillation) (ED) Additional Instructions: We spoke to your labor standards director for recommendations. No signs of any ongoing cardiac damage or electrolyte abnormality causing symptoms. Seems to be purely a electrical issue. Recommendations were to change or flecainide to 100 mg twice a day and keep your metoprolol 25 twice a day. Follow-up with Dr. Mendosa in clinic and return with any emergent concerns, worsening symptoms, developing chest pain, difficulty breathing, syncope or loss of consciousness or any other issues. Patient Language: Occitan Prescriptions: New flecainide 100 mg tablet 100 mg PO Q12H 30 Days Qty: 60 0RF No Action thyroid (pork) 60 mg tablet 60 mg PO DAILY vrpakec-nklmffsjz-jhwe Tablet 1 tablet PO DAILY ascorbic acid (vitamin C) 1,000 mg capsule 1 g PO DAILY PreserVision AREDS [id number],320-226-200 fdyi-he-eltc capsule 1 cap PO BID glucosamine HCl 500 mg tablet 500 mg PO DAILY Rx Instructions: administer with a meal omega 0-lbn-ney-fish oil [Fish Oil] 1,200 (144-216) mg capsule 1 cap PO DAILY capsaicin 0.1 % cream 1 applic topical TID Qty: 42.5 0RF Rx Instructions: do not wash area for at least 30 min after application metoprolol tartrate 50 mg tablet 25 mg PO Q12H Qty: 45 0RF cholecalciferol (vitamin D3) 50 mcg (2,000 unit) capsule 50 mcg PO DAILY Eliquis 5 mg tablet See Rx Instructions .ROUTE .COMPLEX Qty: 180 2RF Dose Instruction: TAKE 1 TABLET BY MOUTH EVERY 12 HOURS Rx Instructions: TAKE 1 TABLET BY MOUTH EVERY 12 HOURS rosuvastatin 10 mg tablet 10 mg PO QHS Qty: 90 1RF flecainide 50 mg tablet 50 mg PO Q12H Qty: 60 5RF ipratropium bromide 42 mcg (0.06 %) spray,non-aerosol 2 spray intranasal TID Qty: 30 1RF Rx Instructions: administer into each nostril Follow-up/Referrals: Carmelina Bertrand MD [Primary Care Provider, Family Practice] Time of Disposition: 05:10
[2025-09-16 02:13] LABS: Hematocrit 41.5 % (37.0-47.0); Hemoglobin 13.6 g/dL (12.0-15.0); Immature Granulocyte Percent A 0.2 % (0-0.5); Lymphocytes Absolute Auto 2.69 K/mm3 (0.9-3.2); Mean Corpuscular HGB Conc 32.8 g/dl (32-36); Mean Corpuscular Hemoglobin 30.0 pg (26-34); Mean Corpuscular Volume 91.4 fl (80-100); Nucleated Red Blood Cells Absolute Auto 0.000 K/mm3 (0.0-0.012); Nucleated Red Blood Cells Perc 0.0 % (0.0-0.2); Platelet Count Result 176 k/mm3 (150-375); Red Blood Count 4.54 M/mm3 (4.2-5.4); White Blood Count 5.6 K/mm3 (4.5-10.0)
[2025-09-16 02:24] LABS: Alanine Aminotransferase 17 U/L (6-35); Albumin Level 4.0 g/dL (3.5-5.1); Alkaline Phosphatase 68 U/L (38-126); Anion Gap 7 mmol/L (4-12); Aspartate Amino Transferase 24 U/L (14-36); Bilirubin,Total 0.6 mg/dL (0.2-1.3); Blood Urea Nitrogen 17 mg/dL (7-17); Calcium 9.0 mg/dL (8.4-10.2); Carbon Dioxide 27 mmol/L (22-30); Chloride 106 mmol/L (98-107); Estimated CRCL calculation 59 ml/min; Estimated Glomerular Filt Rate > 60; Glucose 106 mg/dL (65-110); Lipase 128 U/L (23-300); Magnesium 2.1 mg/dL (1.6-2.3); Potassium 4.0 mmol/L (3.4-5.0); Sodium 140 mmol/L (137-145); Total Protein 7.0 g/dL (6.3-8.2)
[2025-09-16 02:27] LABS: INR 1.4; Prothrombin Time 17.1 Seconds (11.1-14.7)
[2025-09-16 02:28] LABS: Partial Thromboplastin Time 33.8 Seconds (22.3-36.8)
[2025-09-16 02:36] LABS: Troponin I < 0.012 ng/mL (0.000-0.034)
[2025-09-16 04:58] LABS: Troponin I < 0.012 ng/mL (0.000-0.034)
[2025-09-16] MEDS: METOPROLOL TARTRATE 25 MG TABLET PO (05:20)
[2025-09-16] MEDS: FLECAINIDE ACETATE 100 MG TABLET PO (05:21)
== END 2025-09-16 05:30 | disposition home or self-care (01) ==
PROVIDERS: Emergency Provider Student in an Organized Health Care Education/Training Program; PCP Family Medicine
DX: I48.91 Unspecified atrial fibrillation (principal); I10 Essential (primary) hypertension; E78.5 Hyperlipidemia, unspecified; E03.9 Hypothyroidism, unspecified; G62.9 Polyneuropathy, unspecified; H35.30 Unspecified macular degeneration; M85.80 Other specified disorders of bone density and structure, unspecified site; Z98.42 Cataract extraction status, left eye; Z98.41 Cataract extraction status, right eye; R94.31 Abnormal electrocardiogram [ECG] [EKG]
CPT/HCPCS: 36415; 71045; 80053; 83690; 83735; 84484; 85025; 85610; 85730; 93005; 99284; A9270